=== PATIENT | male | born 1935 | race Caucasian/White ===

== ENCOUNTER 2018-10-01 12:22 | Inpatient (IN) | payer MEDICARE, OTHER ==
--- NOTE | 2018-10-01 12:34 | ED ---
General Adult HPI - General Stated complaint: Fall, hip fracture Time Seen by Provider: 10/01/18 12:22 Source: RN notes reviewed - History of Present Illness Initial comments: This is an 83-year-old male who presents emergency Department from [facility]. Patient states he was walking mouth with somewhat this morning he turned tripped and fell and hurt his right hip. Patient was diagnosed with an intertrochanteric fracture at [place] and transferred our facility. Patient denies any head or having any neck pain. Patient denies any other injury at this time. Patient states he does have diabetes and high blood pressure. Patient denies any knee pain or any other area of injury at this time. - Related Data Home Medications Medication Instructions Recorded Confirmed Canagliflozin [Invokana] 100 mg PO DAILY 10/01/18 10/01/18 Garlic 1 tab PO DAILY 10/01/18 10/01/18 Ketoconazole [Ketoconazole 2%] 1 applic TOPICAL BID 10/01/18 10/01/18 Lisinopril 20 mg PO DAILY 10/01/18 10/01/18 Lovastatin [Mevacor] 40 mg PO HS 10/01/18 10/01/18 Triamterene/Hydrochlorothiazid 1 cap PO DAILY 10/01/18 10/01/18 [Dyazide 37.5-25 Capsule] Ubidecarenone [Co Q-10] 100 mg PO DAILY 10/01/18 10/01/18 glipiZIDE [Glucotrol] 10 mg PO AC-BID 10/01/18 10/01/18 metFORMIN HCL 1,000 mg PO BID 10/01/18 10/01/18 Allergies Allergy/AdvReac Type Severity Reaction Status Date / Time No Known Allergies Allergy Verified 10/01/18 13:58 Review of Systems ROS Statement: Those systems with pertinent positive or pertinent negative responses have been documented in the HPI. ROS Other: All systems not noted in ROS Statement are negative. General Exam - General Exam Comments Initial Comments: GENERAL: Patient is well-developed and well-nourished. Patient is nontoxic and well- hydrated and is in mild distress ENT: Neck is soft and supple. No significant lymphadenopathy is noted. Oropharynx is clear. Moist mucous membranes. Neck has full range of motion without eliciting any pain. EYES: The sclera were anicteric and conjunctiva were pink and moist. Extraocular movements were intact and pupils were equal round and reactive to light. Eyelids were unremarkable. PULMONARY: Unlabored respirations. Good breath sounds bilaterally. No audible rales rhonchi or wheezing was noted. CARDIOVASCULAR: There is a regular rate and rhythm without any murmurs gallops or rubs. ABDOMEN: Soft and nontender with normal bowel sounds. No palpable organomegaly was noted. There is no palpable pulsatile mass. SKIN: Skin is clear with no lesions or rashes and otherwise unremarkable. NEUROLOGIC: Patient is alert and oriented x3. Cranial nerves II through XII are grossly intact. Motor and sensory are also intact. Normal speech, volume and content. Symmetrical smile. MUSCULOSKELETAL: Patient is unable to move the right leg secondary to hip pain. Patient's hip is very tender to palpation and does appear to be somewhat swollen. LYMPHATICS: No significant lymphadenopathy is noted PSYCHIATRIC: Normal psychiatric evaluation. Course Vital Signs 10/01/18 10/01/18 10/01/18 12:32 12:36 12:40 Temperature 98.5 F Pulse Rate 77 81 Respiratory 18 12 Rate Blood Pressure 125/71 125/71 O2 Sat by Pulse 95 95 88 L Oximetry 10/01/18 10/01/18 10/01/18 12:50 13:00 13:50 Temperature Pulse Rate 77 82 75 Respiratory 11 L 15 16 Rate Blood Pressure 125/71 125/71 130/66 O2 Sat by Pulse 85 L 92 L 96 Oximetry 10/01/18 14:30 Temperature 98.4 F Pulse Rate 71 Respiratory 16 Rate Blood Pressure 129/65 O2 Sat by Pulse 97 Oximetry Medical Decision Making - Medical Decision Making EKG shows a normal sinus rhythm at 72 bpm SD interval 176 QRS 78 QT interval 424 QTC is 464. Patient's EKG shows no ST segment elevation or depression or T wave abnormalities are noted. I reviewed the x-ray from the other facility and it did show a proximal femur fracture that was comminuted. I spoke to or the [facility] and she agreed to accept the patient admitted the patient to Dr. Guerra. - Lab Data Result diagrams: 10/01/18 13:45 10/01/18 13:45 Lab Results 10/01/18 10/01/18 10/01/18 Range/Units 13:45 13:45 13:45 WBC 8.2 (3.8-10.6) k/uL RBC 3.74 L (4.30-5.90) m/uL Hgb 11.2 L (13.0-17.5) gm/dL Hct 34.4 L (39.0-53.0) % MCV 92.1 (80.0-100.0) fL MCH 30.0 (25.0-35.0) pg MCHC 32.6 (31.0-37.0) g/dL RDW 13.0 (11.5-15.5) % Plt Count 187 (150-450) k/uL Neutrophils % 83 % Lymphocytes % 10 % Monocytes % 5 % Eosinophils % 0 % Basophils % 1 % Neutrophils # 6.8 (1.3-7.7) k/uL Lymphocytes # 0.8 L (1.0-4.8) k/uL Monocytes # 0.4 (0-1.0) k/uL Eosinophils # 0.0 (0-0.7) k/uL Basophils # 0.0 (0-0.2) k/uL PT 10.5 (9.0-12.0) sec INR 1.0 (<1.2) APTT 22.4 (22.0-30.0) sec Sodium 140 (137-145) mmol/L Potassium 3.9 (3.5-5.1) mmol/L Chloride 113 H (98-107) mmol/L Carbon Dioxide 24 (22-30) mmol/L Anion Gap 3 mmol/L BUN 17 (9-20) mg/dL Creatinine 0.79 (0.66-1.25) mg/dL Est GFR (CKD-EPI)AfAm >90 (>60 ml/min/1.73 sqM) Est GFR (CKD-EPI)NonAf 84 (>60 ml/min/1.73 sqM) Glucose 158 H (74-99) mg/dL Calcium 8.4 (8.4-10.2) mg/dL Total Bilirubin 0.9 (0.2-1.3) mg/dL AST 20 (17-59) U/L ALT 26 (21-72) U/L Alkaline Phosphatase 67 (38-126) U/L Total Protein 5.7 L (6.3-8.2) g/dL Albumin 3.1 L (3.5-5.0) g/dL Disposition Clinical Impression: Femur fracture Disposition: ADMITTED IP TO THIS HOSP Time of Disposition: 13:51
[2018-10-01] MEDS ORDERED: SODIUM CHLORIDE 0.9% 1,000 ML IV ONE (13:55)
[2018-10-01] MEDS ORDERED: MORPHINE SULFATE 2 MG/ML SYRINGE IVP PRN (13:57)
[2018-10-01 14:07] LABS: Basophils % (A) 1 %; Eosinophils % (A) 0 %; HCT 34.4 % (39.0-53.0); HGB 11.2 gm/dL (13.0-17.5); Lymphocytes # (A) 0.8 k/uL (1.0-4.8); Lymphocytes % (A) 10 %; MCHC 32.6 g/dL (31.0-37.0); MCV 92.1 fL (80.0-100.0); Mean Platelet Volume 6.9; Monocytes # (A) 0.4 k/uL (0-1.0); Monocytes % (A) 5 %; Neutrophils # (A) 6.8 k/uL (1.3-7.7); Neutrophils % (A) 83 %; Platelet Count 187 k/uL (150-450); RBC 3.74 m/uL (4.30-5.90); WBC 8.2 k/uL (3.8-10.6)
[2018-10-01 14:21] LABS: ALT 26 U/L (21-72); AST 20 U/L (17-59); Albumin 3.1 g/dL (3.5-5.0); Alkaline Phosphatase 67 U/L (38-126); Anion Gap 3 mmol/L; Blood Urea Nitrogen 17 mg/dL (9-20); Calcium 8.4 mg/dL (8.4-10.2); Carbon Dioxide 24 mmol/L (22-30); Chloride 113 mmol/L (98-107); Glucose 158 mg/dL (74-99); Potassium 3.9 mmol/L (3.5-5.1); Sodium 140 mmol/L (137-145); Total Bilirubin 0.9 mg/dL (0.2-1.3); Total Protein 5.7 g/dL (6.3-8.2)
[2018-10-01 14:26] LABS: Partial Thromboplastin Time 22.4 sec (22.0-30.0); Prothrombin Time 10.5 sec (9.0-12.0)
--- NOTE | 2018-10-01 14:52 | CT ---
EXAMINATION TYPE: CT hip RT wo con DATE OF EXAM: 10/01/2018 COMPARISON: 10/01/2018 plain films HISTORY: right hip fx CT DLP: 563.9 mGycm Automated exposure control for dose reduction was used. FINDINGS: There is a comminuted fracture at the proximal diaphysis right hip. There is avulsion of the lesser t rochanter. There is an oblique fracture of the diaphysis of the femur. The femoral head articulates with the acetabulum. Femoral neck and greater trochanter appear intact. IMPRESSION: COMMINUTED FRACTURE PROXIMAL DIAPHYSIS RIGHT FEMUR.
[2018-10-01] MEDS ORDERED: HYDROmorphone 1 MG/ML 1 ML SYRINGE IVP PRN (15:26)
[2018-10-01] MEDS ORDERED: DIAZEPAM 5 MG TAB PO PRN (15:27)
[2018-10-01] MEDS ORDERED: ACETAMINOPHEN TAB 500 MG TAB PO PRN (15:57)
[2018-10-01] MEDS ORDERED: POLYETHYLENE GLYCOL 3350 17 GM POWD.PACK PO PRN (15:57)
--- NOTE | 2018-10-01 15:58 | P.HPOR ---
History of Present Illness H&P Date: 10/01/18 Chief Complaint: Right hip pain The patient is an 83-year-old male who presented to [facility] as a transfer from [facility]. The patient states that he fell early this morning while getting wood outside. He fell onto his right side and had immediate right hip pain. The patient did go to the emergency department at [facility] where he was found to have a intertrochanteric fracture and was transferred here for further evaluation and care by orthopedic surgery. The patient denies any other injury at this time. The patient does have a history of diabetes, hyperlipidemia, and hypertension. He does live at home with his . The patient denies fever, chills, rigors, shortness breath, chest pain, and abdominal pain today. Review of Systems Constitutional: Denies chills, Denies fatigue, Denies fever Cardiovascular: Denies chest pain, Denies shortness of breath Respiratory: Denies cough Gastrointestinal: Denies diarrhea, Denies nausea, Denies vomiting Musculoskeletal: right: hip pain, hip stiffness, hip swelling Past Medical History Past Medical History: Coronary Artery Disease (CAD), Diabetes Mellitus, Hyperlipidemia, Hypertension, Prostate Disorder Additional Past Medical History / Comment(s): heart murmur History of Any Multi-Drug Resistant Organisms: None Reported Past Surgical History: Joint Replacement, Orthopedic Surgery Additional Past Surgical History / Comment(s): amputated finger,knee repair, cataract Past Psychological History: No Psychological Hx Reported Smoking Status: Never smoker Past Alcohol Use History: None Reported Past Drug Use History: None Reported - Past Family History Mother Family Medical History: Diabetes Mellitus Father Family Medical History: CVA/TIA Medications and Allergies Home Medications Medication Instructions Recorded Confirmed Type Canagliflozin [Invokana] 100 mg PO DAILY 10/01/18 10/01/18 History Garlic 1 tab PO DAILY 10/01/18 10/01/18 History Ketoconazole [Ketoconazole 2%] 1 applic TOPICAL BID 10/01/18 10/01/18 History Lisinopril 20 mg PO DAILY 10/01/18 10/01/18 History Lovastatin [Mevacor] 40 mg PO HS 10/01/18 10/01/18 History Triamterene/Hydrochlorothiazid 1 cap PO DAILY 10/01/18 10/01/18 History [Dyazide 37.5-25 Capsule] Ubidecarenone [Co Q-10] 100 mg PO DAILY 10/01/18 10/01/18 History glipiZIDE [Glucotrol] 10 mg PO AC-BID 10/01/18 10/01/18 History metFORMIN HCL 1,000 mg PO BID 10/01/18 10/01/18 History Allergies Allergy/AdvReac Type Severity Reaction Status Date / Time No Known Allergies Allergy Verified 10/01/18 13:58 Physical Examination The patient is an 83 year old male that is no acute distress. He is alert and oriented x3. The patient's head is normocephalic and atraumatic. Exam of the cervical spine reveals no pain upon palpation or range of motion. Exam of the bilateral upper extremities reveal no obvious deformities or pain upon range of motion. Exam of the left lower extremity reveals no pain upon palpation. Exam of the right lower extremity reveals a externally rotated and shortened leg. No pain upon palpation to the lateral hip. There is pain upon logrolling and any range of motion of the leg. Bilateral calves are soft and nontender. Patient has good foot and ankle motion bilaterally. Neurological and circulatory status is intact. Results - Labs Labs: Abnormal Lab Results - Last 24 Hours (Table) 10/01/18 10/01/18 Range/Units 13:45 13:45 RBC 3.74 L (4.30-5.90) m/uL Hgb 11.2 L (13.0-17.5) gm/dL Hct 34.4 L (39.0-53.0) % Lymphocytes # 0.8 L (1.0-4.8) k/uL Chloride 113 H (98-107) mmol/L Glucose 158 H (74-99) mg/dL Total Protein 5.7 L (6.3-8.2) g/dL Albumin 3.1 L (3.5-5.0) g/dL H & H 10/01/18 Range/Units 13:45 Hgb 11.2 L (13.0-17.5) gm/dL Hct 34.4 L (39.0-53.0) % Coagulation 10/01/18 Range/Units 13:45 INR 1.0 (<1.2) Result Diagrams: 10/01/18 13:45 10/01/18 13:45 - Diagnostic results Hip x-ray: image reviewed (Outside x-rays of the right hip reveal a displaced proximal femur fracture with displacement of the lesser trochanter.) Assessment and Plan (1) Fall Current Visit: Yes Status: Acute Code(s): W19.XXXA - UNSPECIFIED FALL, INITIAL ENCOUNTER SNOMED Code(s): 1890688 (2) Diabetes mellitus Current Visit: Yes Status: Acute Code(s): E11.9 - TYPE 2 DIABETES MELLITUS WITHOUT COMPLICATIONS SNOMED Code(s): 81473175 (3) Hyperlipidemia Current Visit: Yes Status: Acute Code(s): E78.5 - HYPERLIPIDEMIA, UNSPECIFIED SNOMED Code(s): 27721308 (4) Hypertension Current Visit: Yes Status: Acute Code(s): I10 - ESSENTIAL (PRIMARY) HYPERTENSION SNOMED Code(s): 70203068 (5) Coronary artery disease Current Visit: Yes Status: Acute Code(s): I25.10 - ATHSCL HEART DISEASE OF [place] CORONARY ARTERY W/O ANG PCTRS SNOMED Code(s): 46356554 (6) Femur fracture Current Visit: Yes Status: Acute Code(s): S72.90XA - UNSP FRACTURE OF UNSP FEMUR, INIT ENCNTR FOR CLOSED FRACTURE SNOMED Code(s): 17783489 Plan: The clinical and x-ray findings were discussed with the patient and the patient' s family at the bedside. The case was also discussed with Dr. Strickland. A CT of the right hip was ordered to evaluate the fracture further. We are recommending a intertrochanteric nailing of the right hip. Internal medicine has been consulted for medical clearance for surgery. The patient may begin a consistent carb diet tonight. Continue bedrest. Continue pain control per internal medicine. We are planning surgical intervention in the next 1-2 days depending on clearance. We will continue to follow patient closely and make further recommendations as needed.
--- NOTE | 2018-10-01 16:01 | P.CONS ---
History of Present Illness - Reason for Consult Preoperative clearance - History of Present Illness A pleasant 83-year-old gentleman had a mechanical fall found to have comminuted fracture the [place] diaphoresis of the right femur. Patient is complaining of severe pain in that area and spasms in that area. She denied any syncopal episode. Patient denied any chest pain at this time patient is not a smoker oxygen status is very good not dependent in ADLs or IADLs. Patient had an EKG which showed some old septal Q waves. Patient denied any shortness of breath doesn't have any history of congestive heart failure and valvular heart disease. I'll obtain echocardiogram to make sure there are no wall motion abnormalities or significant valvular abnormalities patient risk is low to intermediate operative risk for orthopedic surgery. Thing was discussed with the patient. Patient the is on opiates which will be discontinued will use Toradol for pain along with GI prophylaxis and baclofen for spasms discontinue diazepam to prevent delirium and other side effects associated with these medications and elderly people of his age. Patient does have previous history of smoking he quit in 1967 Review of Systems REVIEW OF SYSTEMS: CONSTITUTIONAL: No fever, no malaise, no fatigue. HEENT: No recent visual problems or hearing problems. Denied any sore throat. CARDIOVASCULAR: No chest pain, orthopnea, PND, no palpitations, no syncope. PULMONARY: No shortness of breath, no cough, no hemoptysis. GASTROINTESTINAL: No diarrhea, no nausea, no vomiting, no abdominal pain. Normoactive bowel sounds. NEUROLOGICAL: No headaches, no weakness, no numbness. HEMATOLOGICAL: Denies any bleeding or petechiae. GENITOURINARY: Denies any burning micturition, frequency, or urgency. MUSCULOSKELETAL/RHEUMATOLOGICAL: Right leg pain ENDOCRINE: Denies any polyuria or polydipsia. The rest of the 14-point review of systems is negative. Past Medical History Past Medical History: Coronary Artery Disease (CAD), Diabetes Mellitus, Hyperlipidemia, Hypertension, Prostate Disorder Additional Past Medical History / Comment(s): heart murmur History of Any Multi-Drug Resistant Organisms: None Reported Past Surgical History: Joint Replacement, Orthopedic Surgery Additional Past Surgical History / Comment(s): amputated finger,knee repair, cataract Past Psychological History: No Psychological Hx Reported Smoking Status: Never smoker Past Alcohol Use History: None Reported Past Drug Use History: None Reported Medications and Allergies Home Medications Medication Instructions Recorded Confirmed Type Canagliflozin [Invokana] 100 mg PO DAILY 10/01/18 10/01/18 History Garlic 1 tab PO DAILY 10/01/18 10/01/18 History Ketoconazole [Ketoconazole 2%] 1 applic TOPICAL BID 10/01/18 10/01/18 History Lisinopril 20 mg PO DAILY 10/01/18 10/01/18 History Lovastatin [Mevacor] 40 mg PO HS 10/01/18 10/01/18 History Triamterene/Hydrochlorothiazid 1 cap PO DAILY 10/01/18 10/01/18 History [Dyazide 37.5-25 Capsule] Ubidecarenone [Co Q-10] 100 mg PO DAILY 10/01/18 10/01/18 History glipiZIDE [Glucotrol] 10 mg PO AC-BID 10/01/18 10/01/18 History metFORMIN HCL 1,000 mg PO BID 10/01/18 10/01/18 History Allergies Allergy/AdvReac Type Severity Reaction Status Date / Time No Known Allergies Allergy Verified 10/01/18 13:58 Physical Exam Vitals: Vital Signs Temp Pulse Pulse Resp BP BP Pulse Ox 10/01/18 15:19 98.1 F 76 15 163/69 99 10/01/18 14:30 98.4 F 71 16 129/65 97 10/01/18 13:50 75 16 130/66 96 10/01/18 13:00 82 15 125/71 92 L 10/01/18 12:50 77 11 L 125/71 85 L 10/01/18 12:40 81 12 125/71 88 L 10/01/18 12:36 98.5 F 77 18 125/71 95 10/01/18 12:32 95 Intake and Output 10/01/18 10/01/18 10/01/18 06:59 14:59 22:59 Other: Weight 92.533 kg PHYSICAL EXAMINATION: GENERAL: The patient is alert and oriented x3, not in any acute distress. Well developed, well nourished. HEENT: Pupils are round and equally reacting to light. EOMI. No scleral icterus. No conjunctival pallor. Normocephalic, atraumatic. No pharyngeal erythema. No thyromegaly. CARDIOVASCULAR: S1 and S2 present. No murmurs, rubs, or gallops. PULMONARY: Chest is clear to auscultation, no wheezing or crackles. ABDOMEN: Soft, nontender, nondistended, normoactive bowel sounds. No palpable organomegaly. MUSCULOSKELETAL: Deferred to orthopedic surgery EXTREMITIES: No cyanosis, clubbing, or pedal edema. NEUROLOGICAL: Gross neurological examination did not reveal any focal deficits. SKIN: No rashes. Results CBC & Chem 7: 10/01/18 13:45 10/01/18 13:45 Labs: Abnormal Lab Results - Last 24 Hours (Table) 10/01/18 10/01/18 Range/Units 13:45 13:45 RBC 3.74 L (4.30-5.90) m/uL Hgb 11.2 L (13.0-17.5) gm/dL Hct 34.4 L (39.0-53.0) % Lymphocytes # 0.8 L (1.0-4.8) k/uL Chloride 113 H (98-107) mmol/L Glucose 158 H (74-99) mg/dL Total Protein 5.7 L (6.3-8.2) g/dL Albumin 3.1 L (3.5-5.0) g/dL Assessment and Plan Plan: -Preoperative clearance: Patient is lower to intermediate risk for surgery will obtain echocardiogram to rule out any valvular abnormalities were moist abnormalities and to assess ejection fraction. -Comminuted fracture of the right femur: Pain management as mentioned above and DVT prophylaxis as per primary service. -Coronary artery disease never had any stents in the past patient will be resumed on beta [place] -type 2 diabetes mellitus: Oral hypoglycemic agents will be discontinued and patient the will be on sliding scale - hyperlipidemia -Hypertension: Neck supple beta [place] rest of the other antidepressive medications will be held monitor blood pressure and these medications will be started back if needed on as-needed basis. This is to prevent perioperative hypotension -Benign prostatic hypertrophy
[2018-10-01] MEDS: BACLOFEN 10 MG TAB PO PRN (16:11)
[2018-10-01] MEDS ORDERED: glipiZIDE 10 MG TAB PO SCH (17:30)
[2018-10-01 17:31] LABS: Glucose,Whole Blood 155 mg/dL (75-99)
[2018-10-01] MEDS: INSULIN ASPART 100 UNIT/ML 1 ML 10 ML VIAL SQ SCH ×2 (17:35→20:14)
[2018-10-01] MEDS: KETOROLAC 30 MG/ML 1 ML VIAL IVP PRN (18:57)
[2018-10-01 20:04] LABS: Glucose,Whole Blood 208 mg/dL (75-99)
[2018-10-01] MEDS: CLOTRIMAZOLE 1% CREAM 15 GM TUBE TOPICAL SCH (20:13)
[2018-10-01] MEDS: ATORVASTATIN 10 MG TAB PO SCH (20:14)
[2018-10-01] MEDS: FAMOTIDINE 20 MG TAB PO SCH (20:14)
[2018-10-01] MEDS ORDERED: metFORMIN 500 MG TAB PO SCH (21:00)
[2018-10-02] MEDS: BACLOFEN 10 MG TAB PO PRN ×3 (02:24→17:12)
[2018-10-02 07:03] LABS: Glucose,Whole Blood 187 mg/dL (75-99)
[2018-10-02] MEDS: INSULIN ASPART 100 UNIT/ML 1 ML 10 ML VIAL SQ SCH ×4 (07:56→21:54)
[2018-10-02] MEDS: Canagliflozin [Invokana] 100 MG PO SCH (07:56)
[2018-10-02] MEDS: FAMOTIDINE 20 MG TAB PO SCH ×2 (07:57→21:54)
[2018-10-02] MEDS: KETOROLAC 30 MG/ML 1 ML VIAL IVP PRN ×3 (08:34→22:06)
[2018-10-02] MEDS: CLOTRIMAZOLE 1% CREAM 15 GM TUBE TOPICAL SCH ×2 (08:37→21:55)
[2018-10-02] MEDS ORDERED: NON-FORMULARY DRUG (Ubidecarenone [Co Q-10] 100 MG) PO SCH (09:00)
[2018-10-02] MEDS ORDERED: TRIAMTERENE-HCTZ 37.5-25MG 1 EACH CAP PO SCH (09:00)
[2018-10-02] MEDS ORDERED: LISINOPRIL 20 MG TAB PO SCH (09:00)
--- NOTE | 2018-10-02 09:34 | P.CNOR ---
History of Present Illness - [facility] Consult date: 10/02/18 Consult reason: fracture History of present illness: Patient is seen and examined at bedside. He is a very pleasant 83-year-old man who is normally a community ambulate or without any assistance. He is doing some work at home and gathering some firewood and had a fall and had sudden acute pain in his right hip area and I discussed case with Taylor Farooq physician hair or beauty salon assistant and reviewed the history and physical. I'm in agreement with that dictation please refer to that for further details. Patient denies any loss consciousness or chest pain. He has history of bilateral total knee replacements. He denies any problems with his right hip and the past. He has neck and pain in his right hip with any sort of motion. He is unable to his leg up off the bed. Review of Systems As stated per HPI. Denies any tension bowel bladder function. Denies at bedtime patient this breath. Denies any loss of conscious. Denies any history of his right hip. Past Medical History Past Medical History: Coronary Artery Disease (CAD), Diabetes Mellitus, Hyperlipidemia, Hypertension, Musculoskeletal Disorder, Prostate Disorder Additional Past Medical History / Comment(s): heart murmur History of Any Multi-Drug Resistant Organisms: None Reported Past Surgical History: Joint Replacement, Orthopedic Surgery Additional Past Surgical History / Comment(s): amputated finger,knee repair, cataract Past Anesthesia/Blood Transfusion Reactions: No Reported Reaction Past Psychological History: No Psychological Hx Reported Smoking Status: Never smoker Past Alcohol Use History: None Reported Past Drug Use History: None Reported - Past Family History Mother Family Medical History: Diabetes Mellitus Father Family Medical History: CVA/TIA Medications and Allergies Home Medications Medication Instructions Recorded Confirmed Type Canagliflozin [Invokana] 100 mg PO DAILY 10/01/18 10/01/18 History Garlic 1 tab PO DAILY 10/01/18 10/01/18 History Ketoconazole [Ketoconazole 2%] 1 applic TOPICAL BID 10/01/18 10/01/18 History Lisinopril 20 mg PO DAILY 10/01/18 10/01/18 History Lovastatin [Mevacor] 40 mg PO HS 10/01/18 10/01/18 History Triamterene/Hydrochlorothiazid 1 cap PO DAILY 10/01/18 10/01/18 History [Dyazide 37.5-25 Capsule] Ubidecarenone [Co Q-10] 100 mg PO DAILY 10/01/18 10/01/18 History glipiZIDE [Glucotrol] 10 mg PO AC-BID 10/01/18 10/01/18 History metFORMIN HCL 1,000 mg PO BID 10/01/18 10/01/18 History Allergies Allergy/AdvReac Type Severity Reaction Status Date / Time No Known Allergies Allergy Verified 10/01/18 13:58 Physical Examination Osteopathic Statement: *. No significant issues noted on an osteopathic structural exam other than those noted in the History and Physical/Consult. - Hip right Gait: other (His right leg is shortened and externally rotated. He has pain with any sort of motion in his right hip. He has sustained dorsal flexion plantar flexion and EHL intact at the right lower extremity. His thigh and calf soft nontender. He has tenderness to palpation over his hip. His well- healed incisions his right knee. Otherwise his upper extremity is have full active and passive range motion neck is nontender. His abdomen soft nontender chest has good excursion deep inspiration and expiration. The left lower extremity has good active passive range of motion.) Results - Labs Labs: Abnormal Lab Results - Last 24 Hours (Table) 10/01/18 10/01/18 10/01/18 Range/Units 13:45 13:45 17:20 RBC 3.74 L (4.30-5.90) m/uL Hgb 11.2 L (13.0-17.5) gm/dL Hct 34.4 L (39.0-53.0) % Lymphocytes # 0.8 L (1.0-4.8) k/uL Chloride 113 H (98-107) mmol/L Glucose 158 H (74-99) mg/dL POC Glucose (mg/dL) 155 H (75-99) mg/dL Total Protein 5.7 L (6.3-8.2) g/dL Albumin 3.1 L (3.5-5.0) g/dL 10/01/18 10/02/18 Range/Units 19:53 06:44 RBC (4.30-5.90) m/uL Hgb (13.0-17.5) gm/dL Hct (39.0-53.0) % Lymphocytes # (1.0-4.8) k/uL Chloride (98-107) mmol/L Glucose (74-99) mg/dL POC Glucose (mg/dL) 208 H 187 H (75-99) mg/dL Total Protein (6.3-8.2) g/dL Albumin (3.5-5.0) g/dL H & H 10/01/18 Range/Units 13:45 Hgb 11.2 L (13.0-17.5) gm/dL Hct 34.4 L (39.0-53.0) % Coagulation 10/01/18 Range/Units 13:45 INR 1.0 (<1.2) Result Diagrams: 10/01/18 13:45 10/01/18 13:45 - Diagnostic results Hip x-ray: report reviewed (X-rays and CT scans right hip are reviewed. He has a comminuted intertrochanteric right femur fracture with shortening and Rotation. There is no obvious bone mass.), image reviewed Assessment and Plan Assessment: Right hip comminuted intertrochanteric fracture due to a fall, acute Inability to ambulate due to right hip fracture history bilateral knee replacements Plan: right hip intertrochanteric comminuted fracture, acute with displacement Status post fall Inability to ambulate The patient has acute new right hip fracture and is unable to mobilize due to this. This happened occur due to his fall yesterday. The patient will require surgical fixation to allow him the best chance of mobilization and ambulation. With the pattern of his fracture is best for surgery would be to perform intramedullary hip screw placement and internal fixation in the operating room. We discussed this at length with him I discussed the risk, patient's alternatives and benefits of various treatment options ranging from conservative surgical with him. We discussed risk of bleeding risk of infection was need for further surgery risk of decreased loss of motion loss of function malunion nonunion hardware failure nerve damage, possible inability and late possible need for assistive device was all explained to him. The patient will likely need to be nonweightbearing for at least 6 weeks postoperatively. He is scheduled to move out of state as he recently sold his home and was planning to move next week. I discussed with him that this will not likely be possible as he needs to recover significant relief from his major injury and surgery. He will to get this out further with his and family to figure out his accommodations postoperatively when he leaves the hospital. He is being seen by medicine we will plan for surgical intervention tomorrow morning. Time with Patient: Greater than 30
[2018-10-02 11:51] LABS: Glucose,Whole Blood 235 mg/dL (75-99)
--- NOTE | 2018-10-02 15:02 | P.PN ---
Subjective 83-year-old gentleman had a mechanical fall found to have comminuted fracture the [place] diaphoresis of the right femur. Patient is complaining of severe pain in that area and spasms in that area. She denied any syncopal episode. Patient denied any chest pain at this time patient is not a smoker oxygen status is very good not dependent in ADLs or IADLs. Patient had an EKG which showed some old septal Q waves. Patient denied any shortness of breath doesn't have any history of congestive heart failure and valvular heart disease. I'll obtain echocardiogram to make sure there are no wall motion abnormalities or significant valvular abnormalities patient risk is low to intermediate operative risk for orthopedic surgery. Thing was discussed with the patient. Patient the is on opiates which will be discontinued will use Toradol for pain along with GI prophylaxis and baclofen for spasms discontinue diazepam to prevent delirium and other side effects associated with these medications and elderly people of his age. Patient does have previous history of smoking he quit in 196710/02/2018 Patient pain is well-controlled with the present pain regimen but the complaining of severe pain whenever he moves. Echocardiac time is still pending Constitutional: Denied any fatigue denied any fever. Cardio vascular: denied any chest pain, palpitations Gastrointestinal denied any nausea vomiting Pulmonary: Denied any shortness of breath cough Neurologic denied any new focal deficits All inpatient medications were reviewed and appropriate changes in these medications as dictated in the interval history and assessment and plan. Objective - Vital Signs Vital signs: Vital Signs Temp 98.1 F 10/02/18 14:12 Pulse 89 10/02/18 14:12 Resp 20 10/02/18 14:12 BP 132/69 10/02/18 14:12 Pulse Ox 96 10/02/18 14:12 Intake & Output 10/01/18 10/02/18 10/02/18 18:59 06:59 18:59 Intake Total 937.5 1220 Balance 937.5 1220 Weight 92.533 kg Intake: Intake, IV Titration 937.5 1000 Amount Sodium Chloride 0.9% 1, 937.5 1000 000 ml @ 75 mls/hr IV . [id number] ONE Rx#:[id number] Oral 220 Other: Voiding Method Urinal # Voids 3 3 - Exam PHYSICAL EXAMINATION: GENERAL: The patient is alert and oriented x3, not in any acute distress. Well developed, well nourished. HEENT: Pupils are round and equally reacting to light. EOMI. No scleral icterus. No conjunctival pallor. Normocephalic, atraumatic. No pharyngeal erythema. No thyromegaly. CARDIOVASCULAR: S1 and S2 present. No murmurs, rubs, or gallops. PULMONARY: Chest is clear to auscultation, no wheezing or crackles. ABDOMEN: Soft, nontender, nondistended, normoactive bowel sounds. No palpable organomegaly. MUSCULOSKELETAL: Deferred to orthopedic surgery EXTREMITIES: No cyanosis, clubbing, or pedal edema. NEUROLOGICAL: Gross neurological examination did not reveal any focal deficits. SKIN: No rashes. - Labs CBC & Chem 7: 10/01/18 13:45 10/01/18 13:45 Labs: Abnormal Lab Results - Last 24 Hours (Table) 10/01/18 10/01/18 10/02/18 Range/Units 17:20 19:53 06:44 POC Glucose (mg/dL) 155 H 208 H 187 H (75-99) mg/dL 10/02/18 Range/Units 11:40 POC Glucose (mg/dL) 235 H (75-99) mg/dL Assessment and Plan Plan: -Preoperative clearance: Patient is lower to intermediate risk for surgery echocardiogram to rule out any valvular abnormalities were moist abnormalities and to assess ejection fraction. Echo is pending -Comminuted fracture of the right femur: Pain management as mentioned above and DVT prophylaxis as per primary service. -Coronary artery disease never had any stents in the past patient will be resumed on beta [place] -type 2 diabetes mellitus: Oral hypoglycemic agents will be discontinued and patient the will be on sliding scale - hyperlipidemia -Hypertension: Neck supple beta [place] rest of the other antidepressive medications will be held monitor blood pressure and these medications will be started back if needed on as-needed basis. This is to prevent perioperative hypotension -Benign prostatic hypertrophy
[2018-10-02 17:10] LABS: Glucose,Whole Blood 350 mg/dL (75-99)
[2018-10-02 20:04] LABS: Glucose,Whole Blood 238 mg/dL (75-99)
[2018-10-02] MEDS: ATORVASTATIN 10 MG TAB PO SCH (21:54)
[2018-10-03] MEDS: KETOROLAC 30 MG/ML 1 ML VIAL IVP PRN (06:05)
[2018-10-03 06:55] LABS: Glucose,Whole Blood 178 mg/dL (75-99)
--- NOTE | 2018-10-03 07:08 | ECHOF ---
Referral Reason:pre-Op clerance MEASUREMENTS -------- HEIGHT: 180.3 cm WEIGHT: 92.5 kg BP: 135/55 RVIDd: 4.0 cm (< 3.3) IVSd: 1.3 cm (0.6 - 1.1) LVIDd: 3.7 cm (3.9 - 5.3) LVPWd: 1.2 cm (0.6 - 1.1) IVSs: 1.4 cm LVIDs: 2.1 cm LVPWs: 1.3 cm LAESV Index (A-L): 36.07 ml/m Ao Diam: 2.8 cm (2.0 - 3.7) AV Cusp: 1.0 cm (1.5 - 2.6) MV E Taj: 1.35 m/s MV DecT: 263 ms MV A Taj: 1.20 m/s MV E/A Ratio: 1.12 AV maxP.26 mmHg AV meanP.41 mmHg RAP: 15.00 mmHg RVSP: 37.51 mmHg FINDINGS -------- Sinus rhythm. This was a technically difficult study with suboptimal views. The left ventricular size is normal. There is mild concentric left ventricular hypertrophy. Overa ll left ventricular systolic function is normal with, an EF between 55 - 60 %. The right ventricle is severely enlarged. LA is moderately dilated 34-39 ml/m2 RA appears enlarged. 3 ml of Lumason was utilized for enhancement of images. There is moderate aortic valve sclerosis. There is no evidence of aortic regurgitation. There is mild to moderate aortic stenosis present. Peak/mean gradient across the Aortic Valve is 34.26mmHg / 21.41mmHg. The mitral valve leaflets are mildly thickened. Mild mitral annular calcification present. Mild m itral regurgitation is present. Mild tricuspid regurgitation present. Right ventricular systolic pressure is normal at < 35 mmHg. There is no evidence of pulmonary hypertension. The pulmonic valve was not well visualized. The aortic root size is normal. The inferior vena cava is dilated with poor inspiratory collapse which is consistent with estimated r ight atrial pressure of 20 mmHg. There is no pericardial effusion. CONCLUSIONS -------- 1. Sinus rhythm. 2. This was a technically difficult study with suboptimal views. 3. The left ventricular size is normal. 4. There is mild concentric left ventricular hypertrophy. 5. Overall left ventricular systolic function is normal with, an EF between 55 - 60 %. 6. The right ventricle is severely enlarged. 7. LA is moderately dilated 34-39 ml/m2 8. RA appears enlarged. 9. 3 ml of Lumason was utilized for enhancement of images. 10. There is moderate aortic valve sclerosis. 11. There is mild to moderate aortic stenosis present. 12. Peak/mean gradient across the Aortic Valve is 34.26mmHg / 21.41mmHg. 13. The mitral valve leaflets are mildly thickened. 14. Mild mitral annular calcification present. 15. Mild mitral regurgitation is present. 16. Mild tricuspid regurgitation present. 17. Right ventricular systolic pressure is normal at < 35 mmHg. 18. There is no evidence of pulmonary hypertension. 19. The pulmonic valve was not well visualized. 20. The aortic root size is normal. 21. The inferior vena cava is dilated with poor inspiratory collapse which is consistent with estimat ed right atrial pressure of 20 mmHg. 22. There is no pericardial effusion. HIDE BUFFER: Sarwat Huitron RDCS
[2018-10-03] MEDS: INSULIN ASPART 100 UNIT/ML 1 ML 10 ML VIAL SQ SCH ×4 (07:55→22:13)
[2018-10-03] MEDS: Canagliflozin [Invokana] 100 MG PO SCH (07:56)
[2018-10-03] MEDS: FAMOTIDINE 20 MG TAB PO SCH ×2 (07:56→22:12)
[2018-10-03] MEDS: CLOTRIMAZOLE 1% CREAM 15 GM TUBE TOPICAL SCH ×2 (07:56→22:13)
[2018-10-03] MEDS ORDERED: ceFAZolin IN SWFI 2 GM/20 ML SYRINGE IVP ONE (08:15)
[2018-10-03] MEDS ORDERED: MORPHINE SULFATE 2 MG/ML SYRINGE IV PRN (09:29)
[2018-10-03] MEDS ORDERED: HYDROmorphone 0.5 MG/0.5 ML SYRINGE IVP PRN (09:29)
[2018-10-03] MEDS ORDERED: SODIUM CHLORIDE 0.9% 1,000 ML IV ONE (10:36)
[2018-10-03] MEDS ORDERED: KETAMINE 10 MG/ML 20 ML VIAL ONE (10:36)
[2018-10-03] MEDS ORDERED: MIDAZOLAM 2 MG/2 ML VIAL ONE (10:36)
[2018-10-03] MEDS ORDERED: LACTATED RINGERS 1,000 ML IV ONE (11:48)
--- NOTE | 2018-10-03 12:16 | FL ---
FLUOROSCOPY 1 minute and 52 seconds of fluoroscopy time were utilized during internal fixation of the right hip. 3 images document the procedure.
[2018-10-03] MEDS ORDERED: MAGNESIUM HYDROXIDE 2,400 MG/10 ML CUP PO PRN (12:21)
[2018-10-03] MEDS ORDERED: NALOXONE 0.4 MG/ML 1 ML VIAL IV PRN (12:21)
[2018-10-03] MEDS ORDERED: HYDROcodone/APAP 5-325MG 1 EACH TAB PO PRN (12:21)
[2018-10-03 12:28] LABS: Glucose,Whole Blood 187 mg/dL (75-99)
--- NOTE | 2018-10-03 12:31 | P.OP ---
Date of Procedure: 10/03/18 Preoperative Diagnosis: Right hip comminuted intertrochanteric femur fracture with subtrochanteric extension, acute traumatic due to fall Postoperative Diagnosis: Same Procedure(s) Performed: Open reduction internal fixation with intramedullary hip screw Use of fluoroscopic guidance Placement of intramedullary hip screw and lag screw with distal locking screws Anesthesia: GETA Pathology: other (Proximal femur reaming sent to pathology) Condition: stable Disposition: PACU Description of Procedure: Preoperative diagnosis: Intertrochanteric femoral hip fracture, with subtrochanteric extension, acute traumatic due to a fall Postoperative diagnosis: Same Procedure: intertrochanteric hip screw placement Use of fluoroscopic guidance Closed reduction, with open reduction of intertrochanteric fracture Surgeon: Dr. Marco A Moreno.: None Anesthesia: Spinal anesthesia per anesthesia department Estimated blood loss: Approximately 150 mL Components implanted: [employer]AN intramedullary hip screw 130 11 mm with a 105 mm lag screw, a compression screw and a distal locking screw which measured 35 mm Disposition: To recovery room in good stable condition Operative indications The patient sustained a injury and suffered a hip fracture at the inter- trochanteric area of her femur which was displaced and angulated. He is normally a community ambulator and was doing some work carrying some wood to burn inside when he fell and had subacute fracture at his right hip with acute pain. He was brought into the emergency room and found to have an intertrochanteric femur fracture subtrochanteric extension and was transferred to the [facility] for definitive treatment. We were involved in the case in regard to his hip fracture. After evaluation it was determined that they would be a candidate for hip internal fixation and stabilization via surgical intervention. This would give them the best chance of mobilization and ambulation. We discussed the range of treatment options from conservative to surgical. We discussed the risks, patient alternatives and benefits of his injury and various treatment options. The risks of surgery including but not limited to the risk of bleeding risk infection was need for further surgery risk of decreased loss of motion loss function malunion nonunion hardware failure nerve damage and particularly loss of his independence with decreased function given his significant injury was explained to him. They elected proceed with surgical intervention. We answered their questions to the best of our ability healing which they can understand. They signed an informed consent. Operative summary After obtaining informed consent evaluation by anesthesia, preoperative evaluation and clearance for medical service, the patient was identified and prepped [place] area and the surgical site was marked. There brought to the operating room where the given appropriate anesthesia by the anesthesia department in standard fashion without any complications. Once the anesthesia was established we were able to position the patient. The patient was placed on a fracture table with a well-padded perineal post. The operative side was placed in a foot rudolph stirrup which was well-padded well molded and placed in gentle in-line traction. The left nonoperative leg was placed in a padded stirrup. C-arm was brought in and we performed a closed reduction technique at the hip. We are able to get good alignment good position of the intertrochanteric fracture with gentle reduction techniques and traction utilizing the fracture table. Once patient was well positioned lower extremity was prepped and draped in normal standard sterile fashion. An appropriate keystone protocol and timeout was completed and were able to proceed with surgery. At the right lateral hip, He started point just proximal to the greater trochanter was established and a median incision approximately 2 inches in length approximately to the greater trochanter. I dissected down through the fascia and I was able to expose the tip of the greater trochanter. A sharp starting hole was established at the tip of the greater trochanter near the junction of the anterior and middle third. Positioning was confirmed with C-arm guidance. I was able to start the awl into the bone and then use a guidepin at the starting point establish down to the level of the lesser trochanter at the intramedullary space. I then used a starting reamer for the greater trochanter placed over the guidepin and reamed down appropriately under C-arm guidance. I was unable to place a guidepin into the intramedullary aspect of the femur and then reamed appropriately to the appropriate length. The positioning was confirmed on C- arm guidance. Note was made of significant comminution with a subtrochanteric extension which was well realigned and reduced. With the femur appropriately reamed I then chose the appropriate size intramedullary caleb which was connected to the appropriate jig. The jig was checked for alignment. The area was copiously irrigated and suctioned dry and we're able place the caleb at intramedullary space through the starting hole appropriately. It was seated down for appropriate position to align the leg pain into the femoral neck and head. A second incision was established at the site for the placement of the lag screw area and the guide was established at the lateral aspect of the femur and a guidepin was drilled into the femoral neck and head and near center center position. With this appropriate alignment and position where a reamer over the guidepin making sure not to penetrate the articular surface. The position was confirmed on C-arm guidance in AP and lateral positions. With this established we were able to place the appropriate size lag screw after measuring approximately 105 mm. Lag screw was placed into the femoral neck and head good alignment good position with excellent bony purchase. It was appropriately aligned and we placed a locking screw through the caleb appropriately and checked that the position was established. I was able to drill and place the compression screw immediately adjacent and inferior to the lag screw which gave good compression across the fracture site in good alignment and position. With the area in good position able place a distal locking screw. We utilized the guide sleeve a separate incision was made at the skin. The guide sleeve was placed in the lateral aspect of the femur and the distal locking screw hole was established through the femur and distal locking hole of the intramedullary caleb. It was measured appropriately and a distal locking screw was placed in good alignment and good position with excellent bony purchase. The position was checked to make sure it was through the appropriate hole in the intramedullary caleb. With this established we're able to remove the jig completely from the caleb and final images were taken which showed excellent alignment and position of the hardware and the fracture. With the caleb in place and the fracture stable, although the incision sites were copiously irrigated and suctioned dry. Good hemostasis was maintained. Deep fascial layers were closed with #1 Vicryl. Subcu tissue was closed with 2-0 Vicryl. Subcuticular tissues closed with 3-0 Vicryl. Was are cleaned and dried with dressed with Mastisol and Steri-Strips Telfa for a force and tape. Drapes were broken down, the hip was held in stable position with the post being removed safely once the positioning was stabilized. The patient was then transferred back to their hospital bed being careful to maintain the hip and C- spine alignment and airway. Once stable to patient was transferred back to the postanesthesia care unit to be readmitted for pain control and DVT prophylaxis medical management and monitoring and mobilization we will continue follow patient closely throughout their postoperative course.
[2018-10-03] MEDS: LACTATED RINGERS 1,000 ML IV SCH (12:44)
--- NOTE | 2018-10-03 14:48 | P.PN ---
Subjective 83-year-old gentleman had a mechanical fall found to have comminuted fracture the [place] diaphoresis of the right femur. Patient is complaining of severe pain in that area and spasms in that area. She denied any syncopal episode. Patient denied any chest pain at this time patient is not a smoker oxygen status is very good not dependent in ADLs or IADLs. Patient had an EKG which showed some old septal Q waves. Patient denied any shortness of breath doesn't have any history of congestive heart failure and valvular heart disease. I'll obtain echocardiogram to make sure there are no wall motion abnormalities or significant valvular abnormalities patient risk is low to intermediate operative risk for orthopedic surgery. Thing was discussed with the patient. Patient the is on opiates which will be discontinued will use Toradol for pain along with GI prophylaxis and baclofen for spasms discontinue diazepam to prevent delirium and other side effects associated with these medications and elderly people of his age. Patient does have previous history of smoking he quit in 196710/02/2018 Patient pain is well-controlled with the present pain regimen but the complaining of severe pain whenever he moves. Echocardiac time is still pending 10/03/2018 Patient had intramedullary hip screw for his intertrochanteric femoral fracture which was comminuted fracture patient is still coming out of anesthesia Constitutional: Denied any fatigue denied any fever. Cardio vascular: denied any chest pain, palpitations Gastrointestinal denied any nausea vomiting Pulmonary: Denied any shortness of breath cough Neurologic denied any new focal deficits All inpatient medications were reviewed and appropriate changes in these medications as dictated in the interval history and assessment and plan. Objective - Vital Signs Vital signs: Vital Signs Temp 97.4 F L 10/03/18 13:07 Pulse 76 10/03/18 13:07 Resp 18 10/03/18 13:07 BP 174/89 10/03/18 13:07 Pulse Ox 98 10/03/18 13:07 Intake & Output 10/02/18 10/03/18 10/03/18 18:59 06:59 18:59 Intake Total 1440 600 675 Output Total 500 150 Balance 1440 100 525 Intake: IV 600 Intake, IV Titration 1000 75 Amount Lactated Ringers 1,000 ml 75 @ 20 mls/hr IV .Q24H [facility] Rx#:[id number] Sodium Chloride 0.9% 1, 1000 000 ml @ 75 mls/hr IV . [id number] Rx#:[id number] Oral 440 600 Output: Urine 500 Estimated Blood Loss 150 Other: # Voids 3 - Exam PHYSICAL EXAMINATION: GENERAL: The patient is alert and oriented x3, not in any acute distress. Well developed, well nourished. HEENT: Pupils are round and equally reacting to light. EOMI. No scleral icterus. No conjunctival pallor. Normocephalic, atraumatic. No pharyngeal erythema. No thyromegaly. CARDIOVASCULAR: S1 and S2 present. No murmurs, rubs, or gallops. PULMONARY: Chest is clear to auscultation, no wheezing or crackles. ABDOMEN: Soft, nontender, nondistended, normoactive bowel sounds. No palpable organomegaly. MUSCULOSKELETAL: Deferred to orthopedic surgery EXTREMITIES: No cyanosis, clubbing, or pedal edema. NEUROLOGICAL: Gross neurological examination did not reveal any focal deficits. SKIN: No rashes. - Labs CBC & Chem 7: 10/01/18 13:45 10/01/18 13:45 Labs: Abnormal Lab Results - Last 24 Hours (Table) 10/02/18 10/02/18 10/03/18 Range/Units 16:57 19:53 06:37 POC Glucose (mg/dL) 350 H 238 H 178 H (75-99) mg/dL 10/03/18 Range/Units 12:25 POC Glucose (mg/dL) 187 H (75-99) mg/dL Assessment and Plan Plan: -Intertrochanteric fracture of the right hip postoperative day 0 and intramedullary nailing nailing Echo did not show any wall motion abnormalities patient already underwent surgery normal ejection fraction has mild to moderate attic valve sclerosis and stenosis -Comminuted fracture of the right femur: Pain management as mentioned above and DVT prophylaxis as per primary service. -Coronary artery disease never had any stents in the past patient on resumed on beta [place] -type 2 diabetes mellitus: Oral hypoglycemic agents will be discontinued and patient the will be on sliding scale - hyperlipidemia -Hypertension: Neck supple beta [place] rest of the other antihypertensive medications will be held monitor blood pressure and these medications will be started back if needed on as-needed basis. This is to prevent perioperative hypotension -Benign prostatic hypertrophy
[2018-10-03 14:55] LABS: Basophils % (A) 0 %; Eosinophils # (A) 0.1 k/uL (0-0.7); Eosinophils % (A) 1 %; HCT 31.5 % (39.0-53.0); HGB 10.4 gm/dL (13.0-17.5); Hypochromasia Slight; Lymphocytes # (A) 0.6 k/uL (1.0-4.8); Lymphocytes % (A) 7 %; MCH 30.8 pg (25.0-35.0); MCV 93.3 fL (80.0-100.0); Mean Platelet Volume 7.6; Monocytes # (A) 0.4 k/uL (0-1.0); Monocytes % (A) 4 %; Neutrophils # (A) 7.6 k/uL (1.3-7.7); Neutrophils % (A) 87 %; Platelet Count 143 k/uL (150-450); RBC 3.38 m/uL (4.30-5.90); RDW 13.1 % (11.5-15.5); WBC 8.8 k/uL (3.8-10.6)
[2018-10-03] MEDS: HYDROcodone/APAP 5-325MG 1 EACH TAB PO PRN (17:05)
[2018-10-03 17:11] LABS: Glucose,Whole Blood 204 mg/dL (75-99)
[2018-10-03 20:35] LABS: Glucose,Whole Blood 292 mg/dL (75-99)
[2018-10-03] MEDS: ceFAZolin IN SWFI 2 GM/20 ML SYRINGE IVP SCH (22:12)
[2018-10-03] MEDS: ASPIRIN 325 MG TAB PO SCH (22:12)
[2018-10-03] MEDS: ATORVASTATIN 10 MG TAB PO SCH (22:12)
[2018-10-03] MEDS: SENNOSIDES-DOCUSATE SODIUM 1 EACH TAB PO SCH (22:12)
[2018-10-04] MEDS: BACLOFEN 10 MG TAB PO PRN (02:03)
[2018-10-04] MEDS: ceFAZolin IN SWFI 2 GM/20 ML SYRINGE IVP SCH (04:48)
[2018-10-04 07:12] LABS: Glucose,Whole Blood 219 mg/dL (75-99)
[2018-10-04] MEDS: CLOTRIMAZOLE 1% CREAM 15 GM TUBE TOPICAL SCH ×2 (07:46→22:45)
[2018-10-04] MEDS: HYDROcodone/APAP 5-325MG 1 EACH TAB PO PRN ×3 (07:46→23:35)
[2018-10-04] MEDS: FAMOTIDINE 20 MG TAB PO SCH ×2 (07:46→21:24)
[2018-10-04] MEDS: ASPIRIN 325 MG TAB PO SCH ×2 (07:46→21:23)
[2018-10-04] MEDS: INSULIN ASPART 100 UNIT/ML 1 ML 10 ML VIAL SQ SCH ×4 (07:47→21:24)
[2018-10-04] MEDS: Canagliflozin [Invokana] 100 MG PO SCH (07:47)
[2018-10-04 09:50] LABS: HCT 28.4 % (39.0-53.0); HGB 9.5 gm/dL (13.0-17.5); MCH 30.6 pg (25.0-35.0); MCHC 33.3 g/dL (31.0-37.0); MCV 91.8 fL (80.0-100.0); Mean Platelet Volume 7.5; Platelet Count 139 k/uL (150-450); RDW 13.2 % (11.5-15.5); WBC 7.4 k/uL (3.8-10.6)
--- NOTE | 2018-10-04 09:56 | XR ---
EXAMINATION TYPE: XR Hip Complete RT DATE OF EXAM: 10/04/2018 COMPARISON: 10/03/2018 HISTORY: Right hip fracture TECHNIQUE: 2 views right hip FINDINGS: There is placement of screws and medullary pin within the right hip. The avulsion of the le sser trochanter is again evident. Fracture along the lateral right proximal femoral diaphysis is agai n evident. Hip pin is evident. IMPRESSION: 1. No new fractures post hip pin placement.
[2018-10-04 10:03] LABS: Anion Gap 6 mmol/L; Blood Urea Nitrogen 20 mg/dL (9-20); Calcium 8.4 mg/dL (8.4-10.2); Carbon Dioxide 24 mmol/L (22-30); Chloride 109 mmol/L (98-107); Glucose 236 mg/dL (74-99); Potassium 4.2 mmol/L (3.5-5.1); Sodium 139 mmol/L (137-145)
[2018-10-04 11:48] LABS: Glucose,Whole Blood 293 mg/dL (75-99)
[2018-10-04] MEDS ORDERED: HYDROcodone/APAP 5-325MG 1 EACH TAB PO PRN (12:31)
[2018-10-04] MEDS: MULTIVITAMINS, THERA 1 EACH TAB PO SCH (12:38)
--- NOTE | 2018-10-04 16:42 | P.PN ---
Progress Note - Text Progress Note Date: 10/04/18 Patient is a very pleasant 83-year-old male who is seen and examined at bedside for further evaluation in regards to his right hip. He is status post right hip open reduction internal fixation with intramedullary hip screw for right hip comminuted intertrochanteric femur fracture with subtrochanteric extension. Postoperatively he continues to have significant pain in his right hip. He does not want anyone moving his right hip or right lower extremity. His pain is better controlled at rest. He states he did have significant difficulty last night with trying to get the assistance of a nurse. He dropped his phone and call button onto the floor and was unable to get a hold of his nurse. He was able to call 911 from the hospital phone in order to get some help. Nursing states he was somewhat confused after receiving 2 tablets of [place]. Patient did remove his IV last night as well. Patient states he does not feel he can work with physical therapy to increase mobility due to his significant pain at his right hip. He denies any left lower extremity pain. Physical Exam Intramedullary [place] for Intertrochanteric Fracture: Status post surgical day number 1 Patient is examined lying in bed Patient is awake and alert, and oriented 3 Vital signs stable Good chest excursion with deep inspiration and expiration Abdomen soft nontender No signs or symptoms of DVT; no calf pain Lower extremity cuffs in place bilaterally Dressing of the right hip is clean, dry, and intact; no erythema, purulence, or signs of infection Significant pain with palpation over the right hip Significant pain with any movement of the right hip Evidence of a well-healed incision over the right knee along the midline Evidence of a well-healed wound at the distal medial thigh Full range of motion of ankles bilaterally Dorsiflexion, plantarflexion, and extensor hallucis longus positive sustained bilaterally Neurovascularly intact bilateral lower extremities Capillary refill less than 2 seconds bilateral lower extremities Assessment: Status post right hip open reduction internal fixation with intramedullary hip screw for right hip comminuted intertrochanteric femur fracture with subtrochanteric extension Status post fall History of coronary artery disease, diabetes mellitus, hyperlipidemia, hypertension, and prostate disorder Plan: 1. Patient to remain nonweightbearing on the right lower extremity; patient may work with physical therapy to increase mobility and ambulation 2. Keep dressing over the right hip clean, dry, and intact 3. Continue pain control [place] or acetaminophen as prescribed as needed for the for the symptoms 5. Continue with anticoagulation therapy with aspirin 325 mg twice per day 6. Medicine to continue following the patient for their other medical diagnosis 7. We'll continue to follow the patient closely; depending on the patient's progress, he may be able to be discharged home or may need to be discharged to a rehabilitation facility prior to returning home following discharge from the hospital 8. Patient can follow-up with Roverto Pascual PA-C or Dr. Elver Strickland at [facility] in 2-3 weeks following discharge
[2018-10-04 17:13] LABS: Glucose,Whole Blood 350 mg/dL (75-99)
--- NOTE | 2018-10-04 18:57 | P.PN ---
Subjective Progress Note Date: 10/04/18 Progress note being dictated for Dr. Chambers. Interval history:83-year-old gentleman had a mechanical fall found to have comminuted fracture the [place] diaphoresis of the right femur. Patient is complaining of severe pain in that area and spasms in that area. She denied any syncopal episode. Patient denied any chest pain at this time patient is not a smoker oxygen status is very good not dependent in ADLs or IADLs. Patient had an EKG which showed some old septal Q waves. Patient denied any shortness of breath doesn't have any history of congestive heart failure and valvular heart disease. I'll obtain echocardiogram to make sure there are no wall motion abnormalities or significant valvular abnormalities patient risk is low to intermediate operative risk for orthopedic surgery. Thing was discussed with the patient. Patient the is on opiates which will be discontinued will use Toradol for pain along with GI prophylaxis and baclofen for spasms discontinue diazepam to prevent delirium and other side effects associated with these medications and elderly people of his age. Patient does have previous history of smoking he quit in 196710/02/2018 Patient pain is well-controlled with the present pain regimen but the complaining of severe pain whenever he moves. Echocardiac time is still pending 10/03/2018 Patient had intramedullary hip screw for his intertrochanteric femoral fracture which was comminuted fracture patient is still coming out of anesthesia 10/04/2018 continues to have significant amount of pain. Rough night, unable to rest. Became confused with 2 [place] tablets-improved now. Blood sugars uncontrolled, family bringing in shakes, cookies, sweets. Denies chest pain, palpitations or shortness of breath. Constitutional: Denied any fatigue denied any fever. Cardio vascular: denied any chest pain, palpitations Gastrointestinal denied any nausea vomiting Pulmonary: Denied any shortness of breath cough Neurologic denied any new focal deficits Active Medications Acetaminophen (Tylenol Tab) 1,000 mg PO Q6HR PRN PRN Reason: Fever and/ or Mild Pain Hydrocodone Bitart/Acetaminophen ([place] 5-325) 1 each PO Q4HR PRN PRN Reason: Pain Scale 1 to 5 Last Admin: 10/04/18 14:02 Dose: 1 each Hydrocodone Bitart/Acetaminophen ([place] 5-325) 2 each PO Q4HR PRN PRN Reason: PAIN SCALE 6-10 Aspirin (Aspirin) 325 mg PO BID [facility] Last Admin: 10/04/18 07:46 Dose: 325 mg Atorvastatin Calcium (Lipitor) 10 mg PO HS [facility] Last Admin: 10/03/18 22:12 Dose: 10 mg Baclofen (Lioresal) 5 mg PO TID PRN PRN Reason: Muscle Spasm Last Admin: 10/04/18 02:03 Dose: 5 mg Clotrimazole (Lotrimin Cream) 1 applic TOPICAL BID [facility] Last Admin: 10/04/18 07:46 Dose: 1 applic Famotidine (Pepcid) 20 mg PO BID [facility] Last Admin: 10/04/18 07:46 Dose: 20 mg Lactated Ringer's (Lactated Ringers) 1,000 mls @ 20 mls/hr IV .Q24H [facility] Last Admin: 10/03/18 12:44 Dose: Not Given Insulin Aspart (Novolog) 0 unit SQ [facility]; Protocol Last Admin: 10/04/18 17:43 Dose: 6 unit Ketorolac Tromethamine (Toradol) 15 mg IVP Q6HR PRN PRN Reason: Pain Stop: 10/06/18 15:31 Last Admin: 10/03/18 06:05 Dose: 15 mg Magnesium Hydroxide (Milk Of Magnesia) 2,400 mg PO DAILY PRN PRN Reason: Constipation Multivitamins (Theragran) 1 each PO DAILY@1200 [facility] Last Admin: 10/04/18 12:38 Dose: 1 each Naloxone HCl (Narcan) 0.2 mg IV Q2M PRN PRN Reason: Opioid Reversal Canagliflozin [ (Invokana] 100 Mg) 100 mg PO DAILY [facility] Last Admin: 10/04/18 07:47 Dose: Not Given Polyethylene Glycol (Miralax) 17 gm PO DAILY PRN PRN Reason: Constipation Senna/Docusate Sodium (Senokot-S) 2 each PO HS [facility] Last Admin: 10/03/18 22:12 Dose: 2 each Objective - Vital Signs Vital signs: Vital Signs Temp 98.8 F 10/04/18 15:09 Pulse 90 10/04/18 16:00 Resp 16 10/04/18 16:00 BP 117/52 10/04/18 15:09 Pulse Ox 96 10/04/18 15:09 Intake & Output 10/03/18 10/04/18 10/04/18 18:59 06:59 18:59 Intake Total 915 300 350 Output Total 150 150 150 Balance 765 150 200 Intake: IV 600 Intake, IV Titration 75 300 350 Amount Lactated Ringers 1,000 ml 75 @ 20 mls/hr IV .Q24H [facility] Rx#:[id number] Sodium Chloride 0.9% 1, 300 350 000 ml @ 0 mls/hr IV .[facility] Rx#:[id number] Oral 240 Output: Urine 150 150 Estimated Blood Loss 150 Other: Voiding Method Urinal - Exam GENERAL: The patient is alert and oriented x3, not in any acute distress. HEENT: Pupils are round and equally reacting to light. EOMI. No scleral icterus. No conjunctival pallor. Normocephalic, atraumatic. CARDIOVASCULAR: S1 and S2 present. No murmurs, rubs, or gallops. PULMONARY: Chest is clear to auscultation, no wheezing or crackles. ABDOMEN: Soft, nontender, nondistended, normoactive bowel sounds. No palpable organomegaly. MUSCULOSKELETAL: Deferred to orthopedic surgery EXTREMITIES: No cyanosis, clubbing, or pedal edema. NEUROLOGICAL: Gross neurological examination did not reveal any focal deficits. SKIN: No rashes. - Labs CBC & Chem 7: 10/04/18 08:52 10/04/18 08:52 Labs: Abnormal Lab Results - Last 24 Hours (Table) 10/03/18 10/04/18 10/04/18 Range/Units 20:24 07:00 08:52 RBC 3.10 L (4.30-5.90) m/uL Hgb 9.5 L (13.0-17.5) gm/dL Hct 28.4 L (39.0-53.0) % Plt Count 139 L (150-450) k/uL Chloride (98-107) mmol/L Glucose (74-99) mg/dL POC Glucose (mg/dL) 292 H 219 H (75-99) mg/dL 10/04/18 10/04/18 10/04/18 Range/Units 08:52 11:34 16:49 RBC (4.30-5.90) m/uL Hgb (13.0-17.5) gm/dL Hct (39.0-53.0) % Plt Count (150-450) k/uL Chloride 109 H (98-107) mmol/L Glucose 236 H (74-99) mg/dL POC Glucose (mg/dL) 293 H 350 H (75-99) mg/dL Assessment and Plan Assessment: -Comminuted,Intertrochanteric femur fracture of the right hip,S/P intramedullary nailing - normal ejection fraction with mild to moderate aortic valve sclerosis and stenosis -Coronary artery disease never had any stents in the past -type 2 diabetes mellitus - hyperlipidemia -Hypertension: -Benign prostatic hypertrophy Plan: Continue on current medication regime ,monitoring and symptomatic treatment. Pain management adjusted. DVT prophylaxis as per primary service. Aggressive pulmonary toileting. Family has been advised to comply with consistent carb diet. Increase ambulation as advised per orthopedics surgery. PT/OT, possible subacute rehab at discharge. The impression and plan of care has been dictated as directed. : I performed a history and examination of this patient, discussed the same with the dictator. I agree with the dictator's note ,documented as a scribe. Any additional findings or plans will be noted.
[2018-10-04 20:29] LABS: Glucose,Whole Blood 227 mg/dL (75-99)
[2018-10-04] MEDS: SENNOSIDES-DOCUSATE SODIUM 1 EACH TAB PO SCH (21:24)
[2018-10-04] MEDS: ATORVASTATIN 10 MG TAB PO SCH (21:24)
[2018-10-04] MEDS: LACTATED RINGERS 1,000 ML IV SCH (22:45)
[2018-10-05] MEDS: HYDROcodone/APAP 5-325MG 1 EACH TAB PO PRN ×3 (06:13→16:27)
[2018-10-05 07:18] LABS: Glucose,Whole Blood 203 mg/dL (75-99)
[2018-10-05] MEDS: MULTIVITAMINS, THERA 1 EACH TAB PO SCH (07:56)
[2018-10-05] MEDS: FAMOTIDINE 20 MG TAB PO SCH ×2 (07:56→20:59)
[2018-10-05] MEDS: Canagliflozin [Invokana] 100 MG PO SCH (07:57)
[2018-10-05] MEDS: INSULIN ASPART 100 UNIT/ML 1 ML 10 ML VIAL SQ SCH ×4 (07:57→20:53)
[2018-10-05] MEDS: ASPIRIN 325 MG TAB PO SCH ×2 (08:00→20:59)
[2018-10-05 12:10] LABS: Glucose,Whole Blood 290 mg/dL (75-99)
[2018-10-05] MEDS: CLOTRIMAZOLE 1% CREAM 15 GM TUBE TOPICAL SCH ×2 (12:30→21:00)
--- NOTE | 2018-10-05 13:08 | P.PN ---
Progress Note - Text Progress Note Date: 10/05/18 Patient is a very pleasant 83-year-old male who is seen and examined at bedside for further evaluation in regards to his right hip. He is status post right hip open reduction internal fixation with intramedullary hip screw for right hip comminuted intertrochanteric femur fracture with subtrochanteric extension. Postoperatively he continues to have significant pain in his right hip. He does not want anyone moving his right hip or right lower extremity. His pain is better controlled at rest. He was able to stand at the bedside while weightbearing on his left lower extremity with the help of physical therapy. He has been nonweightbearing on the right lower extremity. He has been using an abductor pillow and states he feels this does help control his pain. He has been seen and examined by case management. He is planned for discharge to [facility] at the time of discharge. Physical Exam Intramedullary [place] for Intertrochanteric Fracture: Status post surgical day number 2 Patient is examined lying in bed Patient is awake and alert, and oriented 3 Vital signs stable Good chest excursion with deep inspiration and expiration Abdomen soft nontender No signs or symptoms of DVT; no calf pain Lower extremity cuffs in place bilaterally Abductor pillow intact Dressing of the right hip is clean, dry, and intact; no erythema, purulence, or signs of infection Significant pain with palpation over the right hip Significant pain with any movement of the right hip Evidence of a well-healed incision over the right knee along the midline Evidence of a well-healed wound at the distal medial thigh Full range of motion of ankles bilaterally Dorsiflexion, plantarflexion, and extensor hallucis longus positive sustained bilaterally Neurovascularly intact bilateral lower extremities Capillary refill less than 2 seconds bilateral lower extremities Assessment: Status post right hip open reduction internal fixation with intramedullary hip screw for right hip comminuted intertrochanteric femur fracture with subtrochanteric extension Status post fall History of coronary artery disease, diabetes mellitus, hyperlipidemia, hypertension, and prostate disorder Plan: 1. Patient to remain nonweightbearing on the right lower extremity; patient may work with physical therapy to increase mobility and ambulation 2. Keep dressing over the right hip clean, dry, and intact 3. Continue pain control [place] or acetaminophen as prescribed as needed for the for the symptoms 5. Continue with anticoagulation therapy with aspirin 325 mg twice per day 6. Medicine to continue following the patient for their other medical diagnosis ; patient has been discussed in detail with medicine today who states they'll plan to put in some orders into his chart today in anticipation for discharge tomorrow 7. We'll continue to follow the patient closely; depending on the patient's progress, we may plan to discharge the patient to [facility] as early as tomorrow, 10/06/2018 8. Patient can follow-up with Roverto Pascual PA-C or Dr. Elver Strickland at [facility] in 2-3 weeks following discharge
[2018-10-05 13:20] LABS: Basophils % (A) 1 %; Eosinophils # (A) 0.1 k/uL (0-0.7); Eosinophils % (A) 1 %; HCT 27.8 % (39.0-53.0); HGB 9.2 gm/dL (13.0-17.5); Lymphocytes # (A) 0.4 k/uL (1.0-4.8); Lymphocytes % (A) 6 %; MCH 30.1 pg (25.0-35.0); MCHC 32.9 g/dL (31.0-37.0); MCV 91.5 fL (80.0-100.0); Mean Platelet Volume 7.2; Monocytes # (A) 0.3 k/uL (0-1.0); Monocytes % (A) 4 %; Neutrophils # (A) 5.8 k/uL (1.3-7.7); Neutrophils % (A) 88 %; Platelet Count 145 k/uL (150-450); RBC 3.04 m/uL (4.30-5.90); RDW 13.1 % (11.5-15.5); WBC 6.6 k/uL (3.8-10.6)
[2018-10-05 17:14] LABS: Glucose,Whole Blood 336 mg/dL (75-99)
--- NOTE | 2018-10-05 19:11 | P.PN ---
Subjective Progress Note Date: 10/05/18 Progress note being dictated for Dr. Chambers. Interval history:83-year-old gentleman had a mechanical fall found to have comminuted fracture the [place] diaphoresis of the right femur. Patient is complaining of severe pain in that area and spasms in that area. She denied any syncopal episode. Patient denied any chest pain at this time patient is not a smoker oxygen status is very good not dependent in ADLs or IADLs. Patient had an EKG which showed some old septal Q waves. Patient denied any shortness of breath doesn't have any history of congestive heart failure and valvular heart disease. I'll obtain echocardiogram to make sure there are no wall motion abnormalities or significant valvular abnormalities patient risk is low to intermediate operative risk for orthopedic surgery. Thing was discussed with the patient. Patient the is on opiates which will be discontinued will use Toradol for pain along with GI prophylaxis and baclofen for spasms discontinue diazepam to prevent delirium and other side effects associated with these medications and elderly people of his age. Patient does have previous history of smoking he quit in 1968 10/02/2018 Patient pain is well-controlled with the present pain regimen but the complaining of severe pain whenever he moves. Echocardiac time is still pending 10/03/2018 Patient had intramedullary hip screw for his intertrochanteric femoral fracture which was comminuted fracture patient is still coming out of anesthesia 10/04/2018 continues to have significant amount of pain. Rough night, unable to rest. Became confused with 2 [place] tablets-improved now. Blood sugars uncontrolled, family bringing in shakes, cookies, sweets. Denies chest pain, palpitations or shortness of breath. 10/05/2018 continues to have significant pain. Reports controlled at rest but severe with any movement. Right hip x-rays obtained yesterday and reviewed by orthopedics with no significant change reported. Stood at bedside with physical therapy today. Blood sugars uncontrolled, patient and family noncompliant with consistent carb diet. T-max 99.3. Denies chest pain, palpitations or increasing shortness of breath. Objective - Vital Signs Vital signs: Vital Signs Temp 99.3 F 10/05/18 14:30 Pulse 102 H 10/05/18 16:00 Resp 18 10/05/18 16:00 BP 155/68 10/05/18 14:30 Pulse Ox 97 10/05/18 14:30 Intake & Output 10/05/18 10/05/18 10/06/18 06:59 18:59 06:59 Intake Total 500 Output Total 200 100 Balance -200 400 Intake: Oral 500 Output: Urine 200 100 Other: Voiding Method Urinal Urinal - Exam GENERAL: The patient is sitting up in bed, alert and oriented x3, no acute distress. HEENT: Pupils are round and equally reacting to light. EOMI. No scleral icterus. No conjunctival pallor. Normocephalic, atraumatic. CARDIOVASCULAR: S1 and S2 present. No murmurs, rubs, or gallops. PULMONARY: Chest is clear to auscultation, no wheezing or crackles. ABDOMEN: Soft, nontender, nondistended, normoactive bowel sounds. No palpable organomegaly. MUSCULOSKELETAL: Deferred to orthopedic surgery EXTREMITIES: No cyanosis, clubbing, or pedal edema. NEUROLOGICAL: Gross neurological examination did not reveal any focal deficits. SKIN: No rashes. - Labs CBC & Chem 7: 10/05/18 12:27 10/04/18 08:52 Labs: Abnormal Lab Results - Last 24 Hours (Table) 10/04/18 10/05/18 10/05/18 Range/Units 20:17 07:14 11:57 RBC (4.30-5.90) m/uL Hgb (13.0-17.5) gm/dL Hct (39.0-53.0) % Plt Count (150-450) k/uL Lymphocytes # (1.0-4.8) k/uL POC Glucose (mg/dL) 227 H 203 H 290 H (75-99) mg/dL 10/05/18 10/05/18 Range/Units 12:27 17:03 RBC 3.04 L (4.30-5.90) m/uL Hgb 9.2 L (13.0-17.5) gm/dL Hct 27.8 L (39.0-53.0) % Plt Count 145 L (150-450) k/uL Lymphocytes # 0.4 L (1.0-4.8) k/uL POC Glucose (mg/dL) 336 H (75-99) mg/dL Assessment and Plan Assessment: -Comminuted,Intertrochanteric femur fracture of the right hip,S/P intramedullary nailing - normal ejection fraction with mild to moderate aortic valve sclerosis and stenosis -Coronary artery disease never had any stents in the past -type 2 diabetes mellitus - hyperlipidemia -Hypertension: -Benign prostatic hypertrophy Plan: Continue on current medication regime ,monitoring and symptomatic treatment. Pain management to be administered 1/2-1 hour prior to PT/walking/ movement. Aggressive pulmonary toileting with incentive spirometer reinforced.additional NovoLog ordered , close monitoring of Accu-Cheks .continue teaching/reinforcing consistent carb diet with both patient and family. PT/OT. Discharge planning in progress for tomorrow for subacute rehab. The impression and plan of care has been dictated as directed. : I performed a history and examination of this patient, discussed the same with the dictator. I agree with the dictator's note ,documented as a scribe. Any additional findings or plans will be noted.
[2018-10-05 20:22] LABS: Glucose,Whole Blood 226 mg/dL (75-99)
[2018-10-05] MEDS ORDERED: INSULIN ASPART 100 UNIT/ML 1 ML 10 ML VIAL SQ ONE (20:46)
[2018-10-05] MEDS: SENNOSIDES-DOCUSATE SODIUM 1 EACH TAB PO SCH (20:59)
[2018-10-05] MEDS: ATORVASTATIN 10 MG TAB PO SCH (20:59)
[2018-10-05] MEDS: LACTATED RINGERS 1,000 ML IV SCH (21:00)
[2018-10-06 00:17] LABS: Glucose,Whole Blood 147 mg/dL (75-99)
[2018-10-06 06:58] LABS: Glucose,Whole Blood 226 mg/dL (75-99)
[2018-10-06] MEDS: Canagliflozin [Invokana] 100 MG PO SCH (08:08)
[2018-10-06] MEDS: CLOTRIMAZOLE 1% CREAM 15 GM TUBE TOPICAL SCH (08:09)
[2018-10-06] MEDS: LACTATED RINGERS 1,000 ML IV SCH (08:10)
[2018-10-06] MEDS: INSULIN ASPART 100 UNIT/ML 1 ML 10 ML VIAL SQ SCH ×3 (08:17→17:45)
[2018-10-06] MEDS: ASPIRIN 325 MG TAB PO SCH (08:18)
[2018-10-06] MEDS: FAMOTIDINE 20 MG TAB PO SCH (08:18)
[2018-10-06] MEDS: HYDROcodone/APAP 5-325MG 1 EACH TAB PO PRN ×2 (08:18→14:07)
[2018-10-06 08:23] VITALS: RESP 16
--- NOTE | 2018-10-06 11:37 | CDI ---
Documentation Clarification Form Date: 10/06/2018 11:29:20 AM From: Akosua Anthony CCS, CCDS Admit Date: 10/01/2018 1:57:00 PM Patient Name: Jair Brown Visit Number: [id number] Discharge Date: 10/06/2018 ATTENTION: The Clinical Documentation Specialists (CDI) and [facility] Coding Staff appreciate your assistance in clarifying documentation. Please respond to the clarification below the line at the bottom and electronically sign. The CDI & [facility] Coding staff will review the response and follow-up if needed. Please note: Queries are made part of the Legal Health Record. If you have any questions, please contact the author of this message via ITS. Dr. Michelle Corona: Per the 10/05 medical consult progress note: "Blood sugars uncontrolled, pt & family noncompliant w/consistent carb diet." History/Risk Factors: DM II, CAD, Hyperlipidemia, Hypertension, BPH Clinical Indicators: Blood sugars being monitored status post hip surgery for hip fracture. LAB: 155 - 350 - 292 - 350 - 336 - 226 Treatment: Monitoring blood sugars, additional Novolog ordered. In order to capture the severity of Illness and necessary documentation specificity, please clarify: DM Type 2 With Hyperglycemia Without Hyperglycemia Uncontrolled blood sugars due to: Other, please specify: Unable to Determine (Last Revision: July 2017) MTDD
[2018-10-06 11:38] LABS: Glucose,Whole Blood 235 mg/dL (75-99)
[2018-10-06] MEDS: MULTIVITAMINS, THERA 1 EACH TAB PO SCH (13:03)
[2018-10-06 14:12] VITALS: BP 136/79; PULSE 86; TEMP 98.2
--- NOTE | 2018-10-06 14:44 | P.DS ---
Providers Date of admission: 10/01/18 13:57 Expected date of discharge: 10/06/18 Attending physician: Adeel Strickland Consults: 10/01/18 13:55 Consult Physician Urgent Consulting Provider: Michelle Corona Consult Reason/Comments: Medical management Do you want consulting provider notified?: Yes Primary care physician: Jyoti Macias [facility] - Discharge Diagnosis(es) (1) Intertrochanteric fracture of right femur Current Visit: Yes Status: Acute (2) Status post fall Current Visit: Yes Status: Acute (3) Right hip pain Current Visit: Yes Status: Acute (4) History of coronary artery disease Current Visit: Yes Status: Acute (5) History of diabetes mellitus Current Visit: Yes Status: Acute (6) History of hyperlipidemia Current Visit: Yes Status: Acute (7) History of hypertension Current Visit: Yes Status: Acute Hospital Course: This is a pleasant 83-year-old male who presented with right hip comminuted intertrochanteric femur fracture with subtrochanteric extension. Due to his fracture he underwent surgical intervention in which the procedure was a right hip open reduction internal fixation with intramedullary hip screw. Postoperatively his pain has been well controlled while at rest. He has had an exacerbation of right hip pain with movement of the right lower extremity. He does feel he has had some improvement over the past 2 days postoperatively. He has been able to work with physical therapy in standard the bedside with the aid of a walker while remaining nonweightbearing on the right lower extremity. The patient tolerated the procedure well and is been improving postoperatively. Condition on day of discharge stable. Patient will be discharged to [facility]. Patient was cleared preoperatively for surgery by Dr. Corona. Patient currently denies any nausea, vomiting, fever, or chills. Patient is eating and voiding freely without difficulty. Patient should keep dressing over the right hip clean, dry, and intact. Patient may shower without a dressing over the incision sites of incision sites remain dry over the next 72 hours. He is strict nonweightbearing on the right lower extremity. He may use a leg carding supervisor to help move his right lower extremity. Encouraged to use a walker to aid in ambulation. He is encouraged to work with physical therapy to increase mobility and ambulation. MAPS has been reviewed today, 10/06/2018, with an Overall Overdose Risk Score of 110 with a narcotic score of 20 and a sedative score of 10. An "Opiod Start Talking" Forn has been signed by the patient and myself in place in the patient' s chart. A prescription has been written for [place] 5 mg/325 mg 1 tab every 6 hours as needed for pain, dispense #28. He is also given a prescription for aspirin 325 mg 1 tab twice a day dispense # 56 for anticoagulation which he should take this medication as prescribed until completion. Physical Exam on day of discharge: Status post surgical day number 2 Patient is examined lying in bed Patient is awake and alert, and oriented 3 Vital signs stable Good chest excursion with deep inspiration and expiration Abdomen soft nontender No signs or symptoms of DVT; no calf pain Lower extremity cuffs in place bilaterally Abductor pillow intact Dressing of the right hip is clean, dry, and intact; no erythema, purulence, or signs of infection Significant pain with palpation over the right hip Significant pain with any movement of the right hip Evidence of a well-healed incision over the right knee along the midline Evidence of a well-healed wound at the distal medial thigh Full range of motion of ankles bilaterally Dorsiflexion, plantarflexion, and extensor hallucis longus positive sustained bilaterally Neurovascularly intact bilateral lower extremities Capillary refill less than 2 seconds bilateral lower extremities Procedures: Status post right hip open reduction internal fixation with intramedullary hip screw. Patient Condition at Discharge: Stable Plan - Discharge Summary Discharge Rx Participant: Yes New Discharge Prescriptions: New HYDROcodone/APAP 5-325MG [[place] 5] 1 each PO Q6HR PRN #28 tab PRN Reason: Pain Aspirin 325 mg PO BID #56 tab No Action Ubidecarenone [Co Q-10] 100 mg PO DAILY Triamterene/Hydrochlorothiazid [Dyazide 37.5-25 Capsule] 1 cap PO DAILY Lisinopril 20 mg PO DAILY Ketoconazole [Ketoconazole 2%] 1 applic TOPICAL BID Canagliflozin [Invokana] 100 mg PO DAILY metFORMIN HCL 1,000 mg PO BID glipiZIDE [Glucotrol] 10 mg PO AC-BID Lovastatin [Mevacor] 40 mg PO HS Garlic 1 tab PO DAILY Discharge Medication List Canagliflozin [Invokana] 100 mg PO DAILY 10/01/18 [History] Garlic 1 tab PO DAILY 10/01/18 [History] Ketoconazole [Ketoconazole 2%] 1 applic TOPICAL BID 10/01/18 [History] Lisinopril 20 mg PO DAILY 10/01/18 [History] Lovastatin [Mevacor] 40 mg PO HS 10/01/18 [History] Triamterene/Hydrochlorothiazid [Dyazide 37.5-25 Capsule] 1 cap PO DAILY [History] Ubidecarenone [Co Q-10] 100 mg PO DAILY 10/01/18 [History] glipiZIDE [Glucotrol] 10 mg PO AC-BID 10/01/18 [History] metFORMIN HCL 1,000 mg PO BID 10/01/18 [History] Aspirin 325 mg PO BID #56 tab 10/06/18 [Rx] HYDROcodone/APAP 5-325MG [[place] 5] 1 each PO Q6HR PRN #28 tab 10/06/18 [Rx] Follow up Appointment(s)/Referral(s): Jyoti Macias FNPBC [Primary Care Provider] - 10/11/18 11:20 am Roverto Pascual PAC [PHYSICIAN CONTRACT ADMINISTRATIVE ASSISTANT] - 10/15/18 10:00 am (Patient may follow-up with Roverto Pascual PA-C or Dr. Elver Strickland at [facility] in 2-3 weeks following discharge. ) Activity/Diet/Wound Care/Special Instructions: 1. Patient to remain nonweightbearing on the right lower extremity 2. Encouraged to work with physical therapy to increase mobility and ambulation 3. Keep dressing over the right hip clean, dry, and intact 4. May apply ice over the dressing on right hip for comfort support as needed 5. Patient may shower without a dressing over the right hip incisions if incision sites remain dry without active drainage over the next 72 hours 6. Take medications as prescribed Discharge Disposition: TRANSFER TO SNF/ECF
[2018-10-06 17:27] LABS: Glucose,Whole Blood 382 mg/dL (75-99)
--- NOTE | 2018-10-06 18:36 | P.PN ---
Subjective Progress Note Date: 10/06/18 Progress note being dictated for Dr. Chambers. Interval history:83-year-old gentleman had a mechanical fall found to have comminuted fracture the [place] diaphoresis of the right femur. Patient is complaining of severe pain in that area and spasms in that area. She denied any syncopal episode. Patient denied any chest pain at this time patient is not a smoker oxygen status is very good not dependent in ADLs or IADLs. Patient had an EKG which showed some old septal Q waves. Patient denied any shortness of breath doesn't have any history of congestive heart failure and valvular heart disease. I'll obtain echocardiogram to make sure there are no wall motion abnormalities or significant valvular abnormalities patient risk is low to intermediate operative risk for orthopedic surgery. Thing was discussed with the patient. Patient the is on opiates which will be discontinued will use Toradol for pain along with GI prophylaxis and baclofen for spasms discontinue diazepam to prevent delirium and other side effects associated with these medications and elderly people of his age. Patient does have previous history of smoking he quit in 196710/02/2018 Patient pain is well-controlled with the present pain regimen but the complaining of severe pain whenever he moves. Echocardiac time is still pending 10/03/2018 Patient had intramedullary hip screw for his intertrochanteric femoral fracture which was comminuted fracture patient is still coming out of anesthesia 10/04/2018 continues to have significant amount of pain. Rough night, unable to rest. Became confused with 2 [place] tablets-improved now. Blood sugars uncontrolled, family bringing in shakes, cookies, sweets. Denies chest pain, palpitations or shortness of breath. 10/05/2018 continues to have significant pain. Reports controlled at rest but severe with any movement. Right hip x-rays obtained yesterday and reviewed by orthopedics with no significant change reported. Stood at bedside with physical therapy today. Blood sugars uncontrolled, patient and family noncompliant with consistent carb diet. T-max 99.3. Denies chest pain, palpitations or increasing shortness of breath. 10/06/2018 pain better controlled today, up in chair. Passing flatus. Afebrile. Denies chest pain, palpitations or increasing shortness of breath. Objective - Vital Signs Vital signs: Vital Signs Temp 98.2 F 10/06/18 14:11 Pulse 86 10/06/18 14:11 Resp 16 10/06/18 14:11 BP 136/79 10/06/18 14:11 Pulse Ox 96 10/06/18 14:11 Intake & Output 10/05/18 10/06/18 10/06/18 18:59 06:59 18:59 Intake Total 500 540 Output Total 100 Balance 400 540 Intake: Oral 500 540 Output: Urine 100 Other: Voiding Method Urinal Urinal # Voids 2 2 - Exam GENERAL: The patient is sitting up in chair, alert and oriented x3, no acute distress. HEENT: Pupils are round and equally reacting to light. EOMI. No scleral icterus. No conjunctival pallor. CARDIOVASCULAR: S1 and S2 present. No murmurs, rubs, or gallops. PULMONARY: Chest is clear to auscultation, no wheezing or crackles. ABDOMEN: Soft, nontender, nondistended, normoactive bowel sounds. No palpable organomegaly. MUSCULOSKELETAL: Deferred to orthopedic surgery EXTREMITIES: No cyanosis, clubbing, or pedal edema. NEUROLOGICAL: Gross neurological examination did not reveal any focal deficits. SKIN: No rashes. - Labs CBC & Chem 7: 10/05/18 12:27 10/04/18 08:52 Labs: Abnormal Lab Results - Last 24 Hours (Table) 10/05/18 10/06/18 10/06/18 Range/Units 20:07 00:05 06:54 POC Glucose (mg/dL) 226 H 147 H 226 H (75-99) mg/dL 10/06/18 10/06/18 Range/Units 11:27 17:12 POC Glucose (mg/dL) 235 H 382 H (75-99) mg/dL Assessment and Plan Assessment: -Comminuted,Intertrochanteric femur fracture of the right hip,S/P intramedullary nailing - normal ejection fraction with mild to moderate aortic valve sclerosis and stenosis -Coronary artery disease never had any stents in the past -type 2 diabetes mellitus, uncontrolled secondary to patient and family noncompliant with consistent carb diet. - hyperlipidemia -Hypertension: -Benign prostatic hypertrophy Plan: Continue on current medication regime ,monitoring and symptomatic treatment. Pain management, DVT prophylaxis as per orthopedic surgery. Maintain aggressive pulmonary toileting with incentive spirometer reinforced.Close monitoring of Accu-Cheks .continue teaching/reinforcing consistent carb diet with both patient and family. PT/OT. Discharge planning in progress for today for subacute rehab.as per orthopedic surgery. The impression and plan of care has been dictated as directed. : I performed a history and examination of this patient, discussed the same with the dictator. I agree with the dictator's note ,documented as a scribe. Any additional findings or plans will be noted.
[2018-10-06] MEDS ORDERED: glipiZIDE 10 MG TAB PO SCH (18:45)
[2018-10-06] MEDS ORDERED: metFORMIN 500 MG TAB PO SCH (18:45)
[2018-10-06] MEDS ORDERED: INSULIN DETEMIR 100 UNIT/ML 10 ML VIAL SQ SCH (19:00)
[2018-10-07 05:25] LABS: Hemoglobin A1C 7.7 % (4.0-6.0)
== END 2018-10-06 19:15 | DRG 482 ==
LOC: EC 12:22 → 4SSUR 13:57
PROVIDERS: ADMIT Orthopaedic Surgery Orthopaedic Surgery of the Spine; ATTEND Orthopaedic Surgery Orthopaedic Surgery of the Spine
PROC: 0QS636Z Reposition Right Upper Femur with Intramedullary Internal Fixation Device, Percutaneous Approach (ICD-10-PCS; principal; 2018-10-03 09:00)
DX: S72.141A Displaced intertrochanteric fracture of right femur, initial encounter for closed fracture (principal); W01.0XXA Fall on same level from slipping, tripping and stumbling without subsequent striking against object, initial encounter; E78.5 Hyperlipidemia, unspecified; I10 Essential (primary) hypertension; I25.10 Atherosclerotic heart disease of native coronary artery without angina pectoris; E11.65 Type 2 diabetes mellitus with hyperglycemia; I35.8 Other nonrheumatic aortic valve disorders; N40.0 Benign prostatic hyperplasia without lower urinary tract symptoms; Z96.653 Presence of artificial knee joint, bilateral; Y93.01 Activity, walking, marching and hiking; Z83.3 Family history of diabetes mellitus; Z82.3 Family history of stroke; Z79.899 Other long term (current) drug therapy; Z79.84 Long term (current) use of oral hypoglycemic drugs; Z91.11 Patient's noncompliance with dietary regimen; Z87.891 Personal history of nicotine dependence
CPT/HCPCS: 73502; 80048; 80053; 83036; 85025; 85027; 85610; 85730; 88305; 88311; 93005; 93306; 96361; 96374; 99285

== ENCOUNTER 2020-06-06 15:53 | Inpatient (IN) | payer MEDICARE, OTHER ==
[2020-06-06] MEDS ORDERED: ONDANSETRON 4 MG/2 ML VIAL IVP STA (16:06)
[2020-06-06] MEDS ORDERED: HYDROmorphone 0.5 MG/0.5 ML SYRINGE IVP STA (16:06)
--- NOTE | 2020-06-06 16:08 | ED ---
Lower Extremity Injury HPI - General Chief Complaint: Extremity Injury, Lower Stated Complaint: Fall/hip pain Time Seen by Provider: 06/06/20 16:00 Source: patient, EMS, RN notes reviewed Mode of arrival: EMS Limitations: physical limitation - History of Present Illness Initial Comments: This is an 84-year-old male presents emergency from via EMS as a transfer from [facility] chief complaint of left hip pain. Patient reportedly fell off his porch patient had laboratory, imaging found to have a left subcapital fracture. Patient has had knee replacements years ago at [facility]. Patient does not have a current orthopedic physician. CT of the brain and C-spine were unremarkable. Patient received pain meds prior to presen tation but the pain meds have worn off states she's in worsening pain. Patient denies any chest pain or shortness of breath patient states he is a known diabetic denies any blood thinners he states his tetanus is up-to-date. - Related Data Home Medications Medication Instructions Recorded Confirmed Canagliflozin [Invokana] 100 mg PO DAILY 10/01/18 10/01/18 Garlic 1 tab PO DAILY 10/01/18 10/01/18 Ketoconazole [Ketoconazole 2%] 1 applic TOPICAL BID 10/01/18 10/01/18 Lovastatin [Mevacor] 40 mg PO HS 10/01/18 10/01/18 Triamterene/Hydrochlorothiazid 1 cap PO DAILY 10/01/18 10/01/18 [Dyazide 37.5-25 Capsule] Ubidecarenone [Co Q-10] 100 mg PO DAILY 10/01/18 10/01/18 glipiZIDE [Glucotrol] 10 mg PO AC-BID 10/01/18 10/01/18 lisinopriL 20 mg PO DAILY 10/01/18 10/01/18 metFORMIN HCL 1,000 mg PO BID 10/01/18 10/01/18 Previous Rx's Medication Instructions Recorded Acetaminophen Tab [Tylenol] 1,000 mg PO Q6HR PRN tab 10/06/18 Aspirin 325 mg PO BID #56 tab 10/06/18 Famotidine [Pepcid] 20 mg PO BID tab 10/06/18 HYDROcodone/APAP 5-325MG [[place] 5] 1 each PO Q6HR PRN #28 tab 12/12/18 INSULIN LISPRO (HumaLOG) [humaLOG] 0 unit SQ ACHS #1 vial 10/06/18 Multivitamins, Thera [Multivitamin 1 each PO DAILY@1200 tab 10/06/18 (formulary)] Sennosides-Docusate Sodium 2 each PO HS tab 10/06/18 [Senokot-S] Allergies Allergy/AdvReac Type Severity Reaction Status Date / Time No Known Allergies Allergy Verified 06/06/20 16:02 Review of Systems ROS Statement: Those systems with pertinent positive or pertinent negative responses have been documented in the HPI. ROS Other: All systems not noted in ROS Statement are negative. Past Medical History Past Medical History: Coronary Artery Disease (CAD), Diabetes Mellitus, Hyperlipidemia, Hypertension, Musculoskeletal Disorder, Prostate Disorder Additional Past Medical History / Comment(s): heart murmur History of Any Multi-Drug Resistant Organisms: None Reported Past Surgical History: Joint Replacement, Orthopedic Surgery Additional Past Surgical History / Comment(s): amputated finger,knee repair, cataract Past Anesthesia/Blood Transfusion Reactions: No Reported Reaction Past Psychological History: No Psychological Hx Reported Smoking Status: Former smoker Past Alcohol Use History: None Reported Past Drug Use History: None Reported - Past Family History Mother Family Medical History: Diabetes Mellitus Father Family Medical History: CVA/TIA General Exam Limitations: no limitations General appearance: alert, in no apparent distress ENT exam: Present: normal exam, mucous membranes moist Neck exam: Present: normal inspection, full ROM. Absent: tenderness, meningismus, lymphadenopathy Respiratory exam: Present: normal lung sounds bilaterally. Absent: respiratory distress, wheezes, rales, rhonchi, stridor Extremities exam: Present: other (Patient's left hip is rotated, leg is shortened neurovascular intact there is tenderness at the left hip with no significant ecchymosis.) Back exam: Absent: CVA tenderness (R), CVA tenderness (L) Neurological exam: Present: alert, oriented X3 Skin exam: Present: warm, dry, intact, normal color. Absent: rash Course Vital Signs 06/06/20 06/06/20 16:02 16:25 Temperature 99.4 F Pulse Rate 92 81 Respiratory 16 16 Rate Blood Pressure 154/107 142/79 O2 Sat by Pulse 100 100 Oximetry Medical Decision Making - Medical Decision Making Case discussed with neck on-call for advanced orthopedics. Patient be admitted to Dr. Burger with consult to medicine. Disposition Clinical Impression: Closed left hip fracture Disposition: ADMITTED IP TO THIS HOSP Condition: Fair Referrals: Jyoti Macias FNPBC [Primary Care Provider] - 1-2 days
[2020-06-06] MEDS ORDERED: NALOXONE 0.4 MG/ML 1 ML VIAL IV PRN (16:46)
[2020-06-06] MEDS ORDERED: ONDANSETRON 4 MG/2 ML VIAL IVP PRN (16:46)
--- NOTE | 2020-06-06 17:19 | P.HPOR ---
History of Present Illness H&P Date: 06/06/20 Chief Complaint: left subcapital femur fracture patient is an 84-year-old male who was transferred from [facility] after an injury involving his left leg. Patient fell at a relative's house earlier today, after the fall he was unable to weight-bear and obvious ma lalignment of the leg was noted. Initial x-rays were taken at [facility], it was determined he had a subcapital femur fracture on the left side, he was then transferred to our hospital for further management. I was contacted by the emergency room staff, the patient was then admitted under orthopedic care with plan for surgical intervention. Patient was evaluated in the ER today, he is resting comfortably. He notes most discomfort in the left leg when he attempts to move it. He has no other orthopedic complaints at this time. He has a previous history of a right intertrochanteric femur fracture back in September 2018, it was also fixed at this hospital. Patient lives in [place] normally, he visits family quite often during the summer in [place]. Patient uses no cane or walker with ambulation. Patient still drives independently. Patient denies any chest pain, shortness of breath, fever or chills, nausea or vomiting. Review of Systems Constitutional: Reports as per HPI Past Medical History Past Medical History: Coronary Artery Disease (CAD), Diabetes Mellitus, Hyperlipidemia, Hypertension, Musculoskeletal Disorder, Prostate Disorder Additional Past Medical History / Comment(s): heart murmur History of Any Multi-Drug Resistant Organisms: None Reported Past Surgical History: Joint Replacement, Orthopedic Surgery Additional Past Surgical History / Comment(s): amputated finger,knee repair, cataract Past Anesthesia/Blood Transfusion Reactions: No Reported Reaction Past Psychological History: No Psychological Hx Reported Smoking Status: Former smoker Past Alcohol Use History: None Reported Past Drug Use History: None Reported - Past Family History Mother Family Medical History: Diabetes Mellitus Father Family Medical History: CVA/TIA Medications and Allergies Home Medications Medication Instructions Recorded Confirmed Type Canagliflozin [Invokana] 100 mg PO DAILY 10/01/18 10/01/18 History Garlic 1 tab PO DAILY 10/01/18 10/01/18 History Ketoconazole [Ketoconazole 2%] 1 applic TOPICAL BID 10/01/18 10/01/18 History Lovastatin [Mevacor] 40 mg PO HS 10/01/18 10/01/18 History Triamterene/Hydrochlorothiazid 1 cap PO DAILY 10/01/18 10/01/18 History [Dyazide 37.5-25 Capsule] Ubidecarenone [Co Q-10] 100 mg PO DAILY 10/01/18 10/01/18 History glipiZIDE [Glucotrol] 10 mg PO AC-BID 10/01/18 10/01/18 History lisinopriL 20 mg PO DAILY 10/01/18 10/01/18 History metFORMIN HCL 1,000 mg PO BID 10/01/18 10/01/18 History Acetaminophen Tab [Tylenol] 1,000 mg PO Q6HR PRN tab 10/06/18 Rx Aspirin 325 mg PO BID #56 tab 10/06/18 Rx Famotidine [Pepcid] 20 mg PO BID tab 10/06/18 Rx HYDROcodone/APAP 5-325MG [[place] 5] 1 each PO Q6HR PRN #28 tab 10/06/18 Rx INSULIN LISPRO (HumaLOG) [humaLOG] 0 unit SQ ACHS #1 vial 10/06/18 Rx Multivitamins, Thera [Multivitamin 1 each PO DAILY@1200 tab 10/06/18 Rx (formulary)] Sennosides-Docusate Sodium 2 each PO HS tab 10/06/18 Rx [Senokot-S] Allergies Allergy/AdvReac Type Severity Reaction Status Date / Time No Known Allergies Allergy Verified 06/06/20 16:02 Physical Examination Left lower extremity: No obvious open lesions or sores are present throughout the extremity,and begin areas of erythema or soft tissue swelling. Obvious shortening and external r otation of the leg compared to the contralateral side. He is unable to straight leg raise. Logroll maneuver reproduces significant pain in the groin. He's tender with palpation over the anterior and lateral aspect of the proximal femur. There is no effusion present over the knee, there is no tenderness with palpation in the year. There is no tenderness with palpation along the lower leg, foot or ankle. Plantar flexion, dorsiflexion, EHL, FHL are intact. Sensory exam to light touch throughout the extremities intact. Calf is soft, no tenderness with palpation. Dorsalis pedis pulses 2+. Results - Diagnostic results Hip x-ray: report reviewed, image reviewed (outside x-rays were reviewed of the left hip, they demonstrated displaced subcapital femur fracture.) Assessment and Plan Assessment: Displaced left subcapital femur fracture Status post fall from standing other medical comorbidities Plan: I was able to discuss the case, including most physical exam findings and imaging studies and by attending Dr. Burger. Our plan is to proceed with surgical intervention, more specifically a left total hip arthroplasty versus left hip hemiarthroplasty. We would like to proceed with this on 06/07/2020. Risks and benefits of the procedure were discussed with the patient today at bedside, he is in good understanding would like to proceed. Nothing by mouth after midnight Pain control GI and DVT prophylaxis, will likely begin subcu medication after surgery Nonweightbearing at this time Medical recommendations Further recommendations to follow
[2020-06-06 21:32] LABS: Glucose,Whole Blood 217 mg/dL (75-99)
[2020-06-06] MEDS: HYDROmorphone 0.5 MG/0.5 ML SYRINGE IVP PRN (21:32)
[2020-06-06] MEDS ORDERED: ALPRAZolam 0.5 MG TAB PO PRN (21:45)
[2020-06-06] MEDS: INSULIN ASPART (NovoLOG) 100 UNIT/ML VIAL SQ SCH (21:52)
[2020-06-06] MEDS: SODIUM CHLORIDE 0.9% 1,000 ML IV SCH (21:52)
--- NOTE | 2020-06-07 01:52 | P.CONS ---
History of Present Illness - Reason for Consult Consult date: 06/06/20 Preop medical clearance Requesting physician: Hansel Burger - Chief Complaint Left hip pain - History of Present Illness 84-year-old male with past medical history of diabetes mellitus hypertension hyperlipidemia Patient lives in [place] he visits here often while visiting friends he was spending some time on the porch trying to go inside he tripped on the door frame and fell backwards he had his head but did not lose consciousness denies any nausea vomiting denies any open cuts or wounds however he couldn't get up and weight-bear and he noticed that his left lower extremity was rotated and deformed with severe pain in his left hip he was taken to [facility] CT of the head and neck showed no acute process. Imaging of his hip revealed displaced subcapital left femur fracture Patient was transferred from [facility] to our facility for further care orthopedic evaluated the patient and planning on either total or hemiarthroplasty of the left hip Patient otherwise claims to be in good status of health he is very active denies any chest pain or trouble breathing denies any recent heart attacks or congestive heart failure denies any syncope. He denies taking any blood thinners. At baseline he does not use any walker or cane he is very active around his house Review of Systems Pertinent positives as noted in HPI. All other systems were reviewed and are negative Past Medical History Past Medical History: Coronary Artery Disease (CAD), Diabetes Mellitus, Hyperlipidemia, Hypertension, Musculoskeletal Disorder, Prostate Disorder Additional Past Medical History / Comment(s): heart murmur History of Any Multi-Drug Resistant Organisms: None Reported Past Surgical History: Joint Replacement, Orthopedic Surgery Additional Past Surgical History / Comment(s): amputated finger,knee repair, cataract Past Anesthesia/Blood Transfusion Reactions: No Reported Reaction Past Psychological History: No Psychological Hx Reported Smoking Status: Former smoker Past Alcohol Use History: None Reported Additional Past Alcohol Use History / Comment(s): started smoking at age 23 and quit 1968 smoked 2ppd Past Drug Use History: None Reported - Past Family History Mother Family Medical History: Diabetes Mellitus Father Family Medical History: CVA/TIA Medications and Allergies Home Medications Medication Instructions Recorded Confirmed Type Lovastatin [Mevacor] 40 mg PO DAILY 10/01/18 06/06/20 History Triamterene/Hydrochlorothiazid 1 cap PO DAILY 10/01/18 06/06/20 History [Dyazide 37.5-25 Capsule] glipiZIDE [Glucotrol] 10 mg PO DAILY 10/01/18 06/06/20 History metFORMIN HCL 1,000 mg PO BID 10/01/18 06/06/20 History lisinopriL [Zestril] 2.5 mg PO DAILY 06/06/20 06/06/20 History Allergies Allergy/AdvReac Type Severity Reaction Status Date / Time No Known Allergies Allergy Verified 06/06/20 17:19 Physical Exam Vitals: Vital Signs Temp Pulse Pulse Resp BP BP Pulse Ox 06/06/20 20:00 98.9 F 97 16 152/69 97 06/06/20 18:45 98.8 F 95 18 160/83 96 06/06/20 18:01 98.0 F 104 H 20 141/79 96 06/06/20 16:25 81 16 142/79 100 06/06/20 16:02 99.4 F 92 16 154/107 100 Intake and Output 06/06/20 06/06/20 06/07/20 14:59 22:59 06:59 Other: Voiding Method Urinal Weight 81.647 kg Constitutional: No acute distress, conversant, pleasant Eyes: Anicteric sclerae, moist conjunctiva, patient with complete heterochromia Pupils equal round reactive to light ENMT: NC/AT Oropharynx clear, no erythema, exudates Neck: Supple, FROM, no masses, or JVD No carotid bruits No thyromegaly Lungs: Clear to auscultation Clear to percussion Normal respiratory effort, no accessory muscle use Cardiovascular: Heart regular in rate and rhythm, No murmurs, gallops, or rubs No peripheral edema Abdominal: Soft Nontender, no guarding, rebound or rigidity Abdomen moving with respiration Normoactive bowel sounds No hepatomegaly, No splenomegaly No palpable mass No abdominal wall hernia noted Skin: Normal temperature, tone, texture, turgor No induration No subcutaneous nodules No rash, lesions No ulcers Extremities: No digital cyanosis No clubbing Pedal pulses intact and symmetrical Radial pulses intact and symmetrical No calf tenderness Psychiatric: Alert and oriented to person, place and time Appropriate affect fair judgement Neuro Muscles Strength 5/5 in bilateral upper extremity and right lower extremity. Left lower extremity strength is limited by pain Sensation to light touch grossly present throughout Cranial nerves II-XII grossly intact No focal sensory deficits Lymphatics: no palpable cervical or supraclavicular , or inguinal lymph nodes Results Labs: Abnormal Lab Results - Last 24 Hours (Table) 06/06/20 Range/Units 21:31 POC Glucose (mg/dL) 217 H (75-99) mg/dL Assessment and Plan Assessment: Acute displaced left subcapital femur fracture Secondary to mechanical fall Management per orthopedics plans for surgery Pain control DVT prophylaxis per orthopedics Nothing by mouth after midnight Medical conditions Diabetes mellitus with hyperglycemia hold oral hyperglycemic agents Insulin sliding scale Hypertension currently controlled Hold DOROTHEA inhibitor and diuretics on day of surgery Hyperlipidemia resume statin patient is 84year old Male , presetned with displaced left subcapital femur fracture secondary to mechanical fall. Patient denies any recent history or symptoms of congestive heart failure, mycardial infarction, syncope, arrhythmia, palpitation, or exertional dyspnea. Patient denies any past medical history of stroke, CAD, CHF, CKD. Patient does have diabetes mellitus on oral hypoglycemic agents. Patient is functional at baseline at >4 METs she is able to climb one or two flight of stairs with no limitations, she is able to perform house chores. Patient labs from [facility] were reviewed reviewed, EKG reviewed showing normal sinus rhythm Patient is scheduled for orthopedic surgery to fix left hip fracture with either total or hemiarthroplasty. This is of moderate risk, however, patient has advanced age and 1 medical risk factor of diabetes mellitus. Patient can proceed to surgery with low-moderate but acceptable perioperative cardiovascular risk factors. No modifiable risk factors at this time. This has been explained to the patient , all questions answered, patient verbalized understanding and agreement. Thank you for allowing us to participate in the care of this patient. Do not hesitate to contact us with questions. Someone can be reached from the [facility] hospitalist group at all hours of the day at [phone].
[2020-06-07] MEDS: HYDROmorphone 0.5 MG/0.5 ML SYRINGE IVP PRN ×3 (03:06→13:00)
[2020-06-07 06:46] LABS: Glucose,Whole Blood 180 mg/dL (75-99)
[2020-06-07] MEDS: ATORVASTATIN 10 MG TAB PO SCH (07:15)
[2020-06-07] MEDS: SODIUM CHLORIDE 0.9% 1,000 ML IV SCH ×2 (07:18→23:54)
[2020-06-07] MEDS: INSULIN ASPART (NovoLOG) 100 UNIT/ML VIAL SQ SCH ×4 (07:18→20:47)
[2020-06-07 09:35] LABS: Basophils # (A) 0.1 k/uL (0-0.2); Basophils % (A) 1 %; Eosinophils # (A) 0.2 k/uL (0-0.7); Eosinophils % (A) 2 %; HCT 37.9 % (39.0-53.0); HGB 12.3 gm/dL (13.0-17.5); Lymphocytes # (A) 0.6 k/uL (1.0-4.8); Lymphocytes % (A) 7 %; MCH 29.3 pg (25.0-35.0); MCHC 32.4 g/dL (31.0-37.0); MCV 90.5 fL (80.0-100.0); Mean Platelet Volume 7.3; Monocytes # (A) 0.4 k/uL (0-1.0); Monocytes % (A) 4 %; Neutrophils # (A) 7.5 k/uL (1.3-7.7); Neutrophils % (A) 85 %; Platelet Count 183 k/uL (150-450); RBC 4.19 m/uL (4.30-5.90); RDW 13.8 % (11.5-15.5); WBC 8.8 k/uL (3.8-10.6)
[2020-06-07 09:40] LABS: African American GFR (CKD) >90 (>60 ml/min/1.73 sqM); Anion Gap 8 mmol/L; Blood Urea Nitrogen 16 mg/dL (9-20); Calcium 8.6 mg/dL (8.4-10.2); Carbon Dioxide 26 mmol/L (22-30); Chloride 102 mmol/L (98-107); Glucose 175 mg/dL (74-99); Non-African American GFR(CKD) 88 (>60 ml/min/1.73 sqM); Potassium 3.8 mmol/L (3.5-5.1); Sodium 136 mmol/L (137-145)
[2020-06-07 11:42] LABS: Glucose,Whole Blood 157 mg/dL (75-99)
--- NOTE | 2020-06-07 11:53 | ECHOF ---
Referral Reason:preop clearance MEASUREMENTS -------- HEIGHT: 180.3 cm WEIGHT: 81.6 kg BP: 143/82 IVSd: 1.2 cm (0.6 - 1.1) LVIDd: 4.4 cm (3.9 - 5.3) LVPWd: 1.4 cm (0.6 - 1.1) IVSs: 1.8 cm LVIDs: 2.4 cm LVPWs: 1.8 cm LA Diam: 5.8 cm (2.7 - 3.8) Ao Diam: 3.5 cm (2.0 - 3.7) AV Cusp: 1.1 cm (1.5 - 2.6) MV E Taj: 1.19 m/s MV DecT: 141 ms MV A Taj: 1.70 m/s MV E/A Ratio: 0.70 AV maxP.50 mmHg AV meanP.57 mmHg RAP: 5.00 mmHg RVSP: 20.12 mmHg FINDINGS -------- This was a technically difficult study with suboptimal views. The left ventricular size is normal. There is mild concentric left ventricular hypertrophy. Overa ll left ventricular systolic function is low-normal with, an EF between 50 - 55 %. The RV was not well visualized. The left atrium is moderately dilated. The right atrium was not well visualized. 5.0mg of Lumason was utilized for enhancement of images Interatrial and interventricular septum intact. The aortic valve was not well visualized. There is mild aortic stenosis present. The maximum pres sure gradient across the aortic valve is 23.50mmHg. The mitral valve was not well visualized. Mild mitral regurgitation is present. Mild tricuspid regurgitation present. There is no evidence of pulmonary hypertension. The right v entricular systolic pressure, as measured by Doppler, is 20.12mmHg. The pulmonic valve was not well visualized. The aortic root size is normal. IVC Not well visulized. There is no pericardial effusion. CONCLUSIONS -------- 1. The left ventricular size is normal. 2. There is mild concentric left ventricular hypertrophy. 3. Overall left ventricular systolic function is low-normal with, an EF between 50 - 55 %. 4. The left atrium is moderately dilated. 5. There is mild aortic stenosis present. 6. The maximum pressure gradient across the aortic valve is 23.50mmHg. 7. Mild mitral regurgitation is present. 8. Mild tricuspid regurgitation present. DOLL MAKER: Peg Bragg RDCS
[2020-06-07 13:38] LABS: Prothrombin Time 10.5 sec (9.0-12.0)
[2020-06-07] MEDS ORDERED: IV FLUID CONTINUATION 1,000 ML IV ONE (16:20)
[2020-06-07] MEDS ORDERED: LACTATED RINGERS 1,000 ML IV ONE ×2 (16:54→20:00)
[2020-06-07] MEDS ORDERED: fentaNYL (PF) 50 MCG/ML 2 ML AMP ONE (16:56)
[2020-06-07] MEDS ORDERED: KETAMINE 10 MG/ML 20 ML VIAL ONE (16:56)
[2020-06-07] MEDS ORDERED: MIDAZOLAM 2 MG/2 ML VIAL ONE (16:56)
[2020-06-07] MEDS ORDERED: MAGNESIUM HYDROXIDE 2,400 MG/10 ML CUP PO PRN (19:02)
[2020-06-07] MEDS ORDERED: HYDROcodone/APAP 5-325MG 1 EACH TAB PO PRN (19:02)
[2020-06-07] MEDS ORDERED: traMADol 50 MG TAB PO PRN (19:02)
[2020-06-07] MEDS ORDERED: ACETAMINOPHEN TAB 325 MG TAB PO PRN (19:02)
[2020-06-07] MEDS ORDERED: MEPERIDINE 50 MG/ML SYRINGE IVP ONE (19:26)
--- NOTE | 2020-06-07 19:28 | P.OP ---
Date of Procedure: 06/07/20 Preoperative Diagnosis: Displaced left subcapital femoral neck fracture Postoperative Diagnosis: Same Procedure(s) Performed: Left hip hemiarthroplastypress-fit Implants: Depuy Corail size 16 press-fit collared standard femoral stem, +5 neck, 49 mm unipolar head. Anesthesia: spinal Surgeon: Hansel Burger Tool Mechanic #1: Niko Jaramillo Estimated Blood Loss (ml): 200 Pathology: other (Femoral head) Condition: stable Disposition: PACU Indications for Procedure: The patient's an 84-year-old male who is a community annular presents after falling injuring his left hip. Upon evaluation he is noted of evidence of a displaced subcapital femoral neck fracture. A discussion of the risks and benefits of operative intervention was made with patient. He opted to proceed. Operative risks to include infection, neurovascular injury, leg length discrepancy, possible fracture, possible instability and need for subsequent procedures was discussed. Informed consent was obtained. Operative Findings: As below Description of Procedure: The patient was brought to the operating room, and after induction of spinal anesthesia was placed in lateral decubitus position. The bony prominences were properly padded. The pelvis was stabilized perpendicular to the floor with a pegboard. Left lower extremity was prepped and draped in normal fashion. A 15 cm incision was then made centered over the greater trochanter extending proximally to level the ASIS and distally in line with the femoral shaft. The skin and subcu tissues were divided sharply. Electrocautery was used for h emostasis. The fascia bella and gluteus porsha fascia was split in line with the skin incision. The muscle fibers were bluntly dissected proximally. A self-retaining retractor was placed. The anterior and posterior margins of the gluteus medius muscles identified in the anterior two thirds detached from the greater trochanter with electrocautery. The gluteus minimus tendon was identified and detached in similar fashion. The capsular layer was identified. A T-shaped capsulotomy was performed. The capsular flaps were tagged with #2 Ethibond suture. A lower neck cut was made to facilitate head extraction with a sagittal saw. The head was then extracted. The acetabular was inspected. No significant cartilage injury was noted. Attention was then paid towards preparing the proximal femur. A final neck cut was made at a 45 angle shaft proximal 1 cm above the level of lesser trochanter with a sagittal saw. A box chisel was used to open the metaphyseal region. A canal finder used to find the femoral canal. Sequential broaching was performed up to 16. There is good rotational stability. This is placed in 15 of anteversion judging off the trans-epicondylar axis with the leg perpendicular to the floor. A standard neck along with a +5/49 mm unipolar head was placed. The hip was gently reduced. It was taken through range of motion felt to be stable in flexion and extension with internal and external rotation. I felt there was adequate synagogue of soft tissue tension. Hip was gently dislocated. The trial components were then removed. The final size 16 collared femoral stem was inserted again in 15 of anteversion with the leg perpendicular to the floor and was fully seated. Again there is good rotational stability. The +5 spacer and 49 mm unipolar head was gently impacted. The hip was gently reduced. It is skin taken through range of motion felt to be stable in flexion and extension with internal and external rotation. Pulsatile lavage was then utilized. The capsular layer was closed with interrupted #2 Ethibond suture. The gluteus minimus and medius tendons reattached the greater trochanter with #2 Ethibond suture. There was minimal drainage this point therefore a deep drain was not placed. The subcutaneous tissues reapproximated interrupted 2-0 Vicryl sutures. The skin was reprepped with 3-0 subcuticular strata fix suture. Skin tape and adhesive was applied. The patient was awoken from sedation and transferred to recovery room in fair condition. Blood loss was estimated at 200 cc. No complications were incurred. Sponge and needle counts were correct in the case. Moncho ALTMAN assistance during the major components the case to include positioning, exposure, implantation, and closure.
[2020-06-07] MEDS: fentaNYL (PF) 50 MCG/ML 2 ML AMP IV ONE ×2 (19:37→19:43)
--- NOTE | 2020-06-07 19:58 | XR ---
EXAMINATION TYPE: XR Hip Limited LT DATE OF EXAM: 06/07/2020 COMPARISON: Yesterday HISTORY: Postop TECHNIQUE: Single view FINDINGS: There is a left hip prosthesis. Components are in anatomic position. Acetabulum appears int act. IMPRESSION: No complicating process seen.
[2020-06-07 20:34] LABS: Glucose,Whole Blood 203 mg/dL (75-99)
[2020-06-07] MEDS: SENNOSIDES-DOCUSATE SODIUM 1 EACH TAB PO SCH (20:46)
[2020-06-07] MEDS: HYDROcodone/APAP 5-325MG 1 EACH TAB PO PRN (20:47)
[2020-06-08] MEDS: HYDROcodone/APAP 5-325MG 1 EACH TAB PO PRN ×2 (05:42→20:29)
[2020-06-08] MEDS: INSULIN ASPART (NovoLOG) 100 UNIT/ML VIAL SQ SCH ×4 (07:06→21:17)
[2020-06-08 07:18] LABS: Glucose,Whole Blood 195 mg/dL (75-99)
[2020-06-08] MEDS: ENOXAPARIN 40 MG/0.4 ML SYRINGE SQ SCH (09:08)
[2020-06-08] MEDS: ATORVASTATIN 10 MG TAB PO SCH (09:08)
[2020-06-08 10:41] LABS: Basophils # (A) 0.1 k/uL (0-0.2); Basophils % (A) 1 %; Eosinophils % (A) 1 %; HCT 34.7 % (39.0-53.0); HGB 11.1 gm/dL (13.0-17.5); Lymphocytes # (A) 0.6 k/uL (1.0-4.8); Lymphocytes % (A) 6 %; MCH 29.4 pg (25.0-35.0); MCV 91.9 fL (80.0-100.0); Mean Platelet Volume 7.2; Monocytes # (A) 0.3 k/uL (0-1.0); Monocytes % (A) 3 %; Neutrophils # (A) 8.3 k/uL (1.3-7.7); Neutrophils % (A) 89 %; Platelet Count 174 k/uL (150-450); RBC 3.77 m/uL (4.30-5.90); RDW 13.8 % (11.5-15.5); WBC 9.3 k/uL (3.8-10.6)
--- NOTE | 2020-06-08 10:48 | P.PN ---
Subjective Progress Note Date: 06/08/20 Principal diagnosis: Status post left hip hemiarthroplasty patient evaluated at bedside today, he is resting comfortably. He did very well with therapy. His pain is well-controlled. He denies any chest pain or shortness of breath. Objective - Vital Signs Vital signs: Vital Signs Temp 98.2 F 06/08/20 07:00 Pulse 101 H 06/08/20 07:00 Resp 20 06/08/20 07:00 BP 123/71 06/08/20 07:00 Pulse Ox 91 L 06/08/20 07:00 Intake & Output 06/07/20 06/08/20 06/08/20 18:59 06:59 18:59 Intake Total 1550 200 Output Total 200 400 Balance 1350 -200 Intake: IV 1550 100 Sodium Chloride 0.9% 1, 600 000 ml @ 75 mls/hr IV . [id number] ALIX Rx#:[id number] Oral 100 Output: Urine 200 200 Estimated Blood Loss 200 Other: Voiding Method Urinal Urinal # Voids 1 - Exam Left lower extremity: Incision is clean, dry, and intact. The exofin fusion tape is in good condition. There is minimal soft tissue swelling and ecchymosis surrounding the medial and lateral aspects of the incision. Calf is soft, no tenderness with palpation. Plantar flexion, dorsiflexion, EHL, FHL are intact. Sensory exam to light touch throughout the extremity is intact, [dorsal pedis pulses 2+.] - Labs CBC & Chem 7: 06/08/20 10:17 06/07/20 09:00 Labs: Abnormal Lab Results - Last 24 Hours (Table) 06/07/20 06/07/20 06/08/20 Range/Units 11:40 20:18 07:12 RBC (4.30-5.90) m/uL Hgb (13.0-17.5) gm/dL Hct (39.0-53.0) % Neutrophils # (1.3-7.7) k/uL Lymphocytes # (1.0-4.8) k/uL POC Glucose (mg/dL) 157 H 203 H 195 H (75-99) mg/dL 06/08/20 Range/Units 10:17 RBC 3.77 L (4.30-5.90) m/uL Hgb 11.1 L (13.0-17.5) gm/dL Hct 34.7 L (39.0-53.0) % Neutrophils # 8.3 H (1.3-7.7) k/uL Lymphocytes # 0.6 L (1.0-4.8) k/uL POC Glucose (mg/dL) (75-99) mg/dL Assessment and Plan Assessment: Status post left hip hemiarthroplasty Plan: Pain control, low-dose oral medication GI and DVT prophylaxis, continue current medication Wound care instructions were discussed, daily dressing changes Weight-bear as tolerated with walker Medical recommendations Hopefully discharge to rehab tomorrow Time with Patient: Less than 30
[2020-06-08 11:46] LABS: Glucose,Whole Blood 235 mg/dL (75-99)
[2020-06-08] MEDS: SODIUM CHLORIDE 0.9% 1,000 ML IV SCH (12:35)
[2020-06-08 18:02] LABS: Glucose,Whole Blood 216 mg/dL (75-99)
--- NOTE | 2020-06-08 19:00 | P.PN ---
Subjective Progress Note Date: 06/08/20 Patient seen and examined. No acute events were negative. Patient reports well-controlled pain in his right hip. He denies any chest pain, shortness breath or palpitations. No nausea or vomiting. No fever chills. Objective - Vital Signs Vital signs: Vital Signs Temp 98.3 F 06/08/20 15:00 Pulse 108 H 06/08/20 15:00 Resp 20 06/08/20 15:00 BP 144/63 06/08/20 15:00 Pulse Ox 96 06/08/20 15:00 Intake & Output 06/07/20 06/08/20 06/08/20 18:59 06:59 18:59 Intake Total 1550 200 Output Total 200 400 200 Balance 1350 -200 -200 Intake: IV 1550 100 Sodium Chloride 0.9% 1, 600 000 ml @ 75 mls/hr IV . [id number] ALIX Rx#:[id number] Oral 100 Output: Urine 200 200 200 Estimated Blood Loss 200 Other: Voiding Method Urinal Urinal # Voids 1 - Exam General: [non toxic], [no distress], [appears at stated age] Derm: [warm], [dry] Head: [atraumatic], [normocephalic], [symmetric] Eyes: [EOMI], [no lid lag], [anicteric sclera] Mouth: [no lip lesion], [mucus membranes moist] Cardiovascular: [S1S2 reg], [tachycardic], [positive posterior tibial pulse bilateral], Lungs: [CTA bilateral], [no rhonchi, no rales] , [no accessory muscle use] Abdominal: [soft], [ nontender to palpation], [no guarding], [no appreciable organomegaly] Ext: [no gross muscle atrophy], [no edema], [no contractures], right hip dressing clean dry and intact with limited range of motion due to pain Neuro: [no focal neuro deficits] Psych: [Alert], [oriented], [appropriate affect] - Labs CBC & Chem 7: 06/08/20 10:17 06/07/20 09:00 Labs: Abnormal Lab Results - Last 24 Hours (Table) 06/07/20 06/08/20 06/08/20 Range/Units 20:18 07:12 10:17 RBC 3.77 L (4.30-5.90) m/uL Hgb 11.1 L (13.0-17.5) gm/dL Hct 34.7 L (39.0-53.0) % Neutrophils # 8.3 H (1.3-7.7) k/uL Lymphocytes # 0.6 L (1.0-4.8) k/uL POC Glucose (mg/dL) 203 H 195 H (75-99) mg/dL 06/08/20 06/08/20 Range/Units 11:44 18:00 RBC (4.30-5.90) m/uL Hgb (13.0-17.5) gm/dL Hct (39.0-53.0) % Neutrophils # (1.3-7.7) k/uL Lymphocytes # (1.0-4.8) k/uL POC Glucose (mg/dL) 235 H 216 H (75-99) mg/dL Assessment and Plan Assessment: Tachycardia Acute blood loss anemia Diabetes mellitus Hypertension Dyslipidemia His tachycardia is regular and likely related to pain. Anticipate tachycardia to resolve with better pain control. Expected result of surgery. Repeat CBC tomorrow morning. Insulin sliding scale. Regular Accu-Cheks. Hypoglycemic precautions. BP 144/63. Restart antihypertensive medication. Continue lovastatin. Patient will need subacute rehab on discharge. Thank you for this consult. Please call with any additional questions or concerns.
[2020-06-08] MEDS: TRIAMTERENE-HCTZ 37.5-25MG 1 EACH CAP PO SCH (20:29)
[2020-06-08 20:57] LABS: Glucose,Whole Blood 238 mg/dL (75-99)
[2020-06-08] MEDS: SENNOSIDES-DOCUSATE SODIUM 1 EACH TAB PO SCH (21:17)
[2020-06-09] MEDS: SODIUM CHLORIDE 0.9% 1,000 ML IV SCH (00:36)
[2020-06-09] MEDS: HYDROcodone/APAP 5-325MG 1 EACH TAB PO PRN (02:02)
[2020-06-09 06:51] LABS: Glucose,Whole Blood 202 mg/dL (75-99)
[2020-06-09] MEDS: INSULIN ASPART (NovoLOG) 100 UNIT/ML VIAL SQ SCH ×2 (07:33→11:44)
[2020-06-09] MEDS: ATORVASTATIN 10 MG TAB PO SCH (07:33)
[2020-06-09] MEDS: ENOXAPARIN 40 MG/0.4 ML SYRINGE SQ SCH (07:33)
[2020-06-09] MEDS: TRIAMTERENE-HCTZ 37.5-25MG 1 EACH CAP PO SCH (07:33)
[2020-06-09 07:40] VITALS: BP 119/70; PULSE 88; RESP 18; TEMP 97.7
[2020-06-09 09:48] LABS: African American GFR (CKD) >90 (>60 ml/min/1.73 sqM); Anion Gap 10 mmol/L; Blood Urea Nitrogen 18 mg/dL (9-20); Calcium 8.8 mg/dL (8.4-10.2); Carbon Dioxide 26 mmol/L (22-30); Chloride 98 mmol/L (98-107); Glucose 220 mg/dL (74-99); Non-African American GFR(CKD) 89 (>60 ml/min/1.73 sqM); Potassium 3.6 mmol/L (3.5-5.1); Sodium 134 mmol/L (137-145)
--- NOTE | 2020-06-09 11:04 | P.PN ---
Subjective Progress Note Date: 06/09/20 Principal diagnosis: Status post left hip hemiarthroplasty patient evaluated at bedside today, he is resting comfortably. He did very well with therapy. His pain is well-controlled. He denies any chest pain or shortness of breath. Objective - Vital Signs Vital signs: Vital Signs Temp 97.7 F 06/09/20 07:38 Pulse 88 06/09/20 07:38 Resp 18 06/09/20 07:38 BP 119/70 06/09/20 07:38 Pulse Ox 94 L 06/09/20 07:38 Intake & Output 06/08/20 06/09/20 06/09/20 18:59 06:59 18:59 Output Total 200 1 Balance -200 -1 Output: Urine 200 1 Other: Voiding Method Urinal Urinal # Voids 1 - Exam Left lower extremity: Incision is clean, dry, and intact. The exofin fusion tape is in good condition. There is minimal soft tissue swelling and ecchymosis surrounding the medial and lateral aspects of the incision. Calf is soft, no tenderness with palpation. Plantar flexion, dorsiflexion, EHL, FHL are intact. Sensory exam to light touch throughout the extremity is intact, [dorsal pedis pulses 2+.] - Labs CBC & Chem 7: 06/08/20 10:17 06/09/20 07:56 Labs: Abnormal Lab Results - Last 24 Hours (Table) 06/08/20 06/08/20 06/08/20 Range/Units 11:44 18:00 20:55 Sodium (137-145) mmol/L Glucose (74-99) mg/dL POC Glucose (mg/dL) 235 H 216 H 238 H (75-99) mg/dL 06/09/20 06/09/20 Range/Units 06:50 07:56 Sodium 134 L (137-145) mmol/L Glucose 220 H (74-99) mg/dL POC Glucose (mg/dL) 202 H (75-99) mg/dL Assessment and Plan Assessment: Status post left hip hemiarthroplasty Plan: Pain control, low-dose oral medication GI and DVT prophylaxis, continue current medication Wound care instructions were discussed, daily dressing changes Weight-bear as tolerated with walker Medical recommendations Discharged to rehab today Time with Patient: Less than 30
--- NOTE | 2020-06-09 11:09 | P.DS ---
Providers Date of admission: 06/06/20 16:46 Expected date of discharge: 06/09/20 Attending physician: Hansel Burger Consults: 06/06/20 16:46 Consult Physician Urgent Consulting Provider: Elton Ashton Consult Reason/Comments: Surgical clearance, medical management Do you want consulting provider notified?: Yes Primary care physician: Jyoti Macias [facility] Hospital Course: Date of admission: 06/06/2020 Date of discharge: 06/09/2020 Admission diagnosis: Displaced left subcapital femur fracture Discharge diagnosis: Status post left hip hemiarthroplasty Attending physician: Dr. Burger Surgical procedures: Left hip hemiarthroplasty Brief history: Patient is a 85-year-old male who presented to [facility] on 06/06/2020 after falling and injuring his left hip. Patient was evaluated in the emergency room by myself, it was determined he had a subcapital femur fracture. Patient was scheduled for surgery for 06/07/2020. Hospital course: Details of patient's surgery can be found in operative report. Patient tolerated the procedure well and was subsequently transported to orthopedic floor. Patient's orthopeidc and medical care was provided daily. Patient had daily laboratory tests performed for evaluation of overall blood counts. Patient had daily physical therapy to include strengthening range of motion as well as education with walker ambulation. Patient was treated with Lovenox for their postoperative DVT prophylaxis during their inpatient stay. Patient was noted to have a relatively uneventful postoperative course. Patient reported satisfactory pain control with oral pain medications by postoperative day 0. Patient showed satisfactory progress with physical therapy. Patient moved steadily through the program and had no difficulty meeting the goals by postoperative day 2. Given patient's otherwise satisfactory course and having met physical therapy goals, plan is to discharge patient rehab on postoperative day 2. Discharge condition/disposition: Patient will be discharged rehab in stable condition. Discharge medications: Instructions are given on resumption of patient's normal daily medications per primary care recommendation, in addition patient will be prescribed [place] 5 mg/325 mg, Colace 100 mg, heparin 5000 units. Discharge instructions: 1. Wound care and infection precautions, keep incision dry and covered while showering, no lotions, creams, moisturizers. No soaking, tubs, pools, hottubs. Do not scrub over the incision. 2. Weight-bear as tolerated with walker / cane until follow-up. 3. Ice and elevate when necessary. Do not exceed 20 minutes per hour with ice pack. 4. Utilize compression sleeve until seen at first follow up appointment. 5. Visiting nursing care. 6. Home physical therapy. 7. Pain meds and anticoagulants per prescription. 8. Pain medication has potential to cause constipation. Increase oral fluid and fiber intake. Contact primary care provider if you have not had a bowel movement within 48 hours after discharge 9. No anti-inflammatory medication until discussed at first post operative visit, this including Motrin, Aleve, Mobic, Diclofenac 10. Follow up in office at 2 weeks postop with Moncho Jaramillo PA-C 11. Follow up with your primary care doctor 7-10 days after discharge. 12. Contact [facility] with any questions, . Procedures: Left hip hemiarthroplasty Patient Condition at Discharge: Fair Plan - Discharge Summary New Discharge Prescriptions: New Docusate [Colace] 100 mg PO DAILY #30 capsule Heparin Sodium,Porcine [Heparin Sodium] 5,000 unit SQ Q12HR #60 vial Hydrocodone/Acetaminophen [[place] 5-325] 1 - 2 each PO Q6HR PRN #56 tab PRN Reason: Pain ALPRAZolam [Xanax] 0.5 mg PO TID PRN #30 tablet PRN Reason: Anxiety No Action Triamterene/Hydrochlorothiazid [Dyazide 37.5-25 Capsule] 1 cap PO DAILY metFORMIN HCL 1,000 mg PO BID glipiZIDE [Glucotrol] 10 mg PO DAILY Lovastatin [Mevacor] 40 mg PO DAILY lisinopriL [Zestril] 2.5 mg PO DAILY Discharge Medication List Lovastatin [Mevacor] 40 mg PO DAILY 10/01/18 [History] Triamterene/Hydrochlorothiazid [Dyazide 37.5-25 Capsule] 1 cap PO DAILY 10/01/18 [History] glipiZIDE [Glucotrol] 10 mg PO DAILY 10/01/18 [History] metFORMIN HCL 1,000 mg PO BID 10/01/18 [History] lisinopriL [Zestril] 2.5 mg PO DAILY 06/06/20 [History] ALPRAZolam [Xanax] 0.5 mg PO TID PRN #30 tablet 08/15/20 [Rx] Docusate [Colace] 100 mg PO DAILY #30 capsule 06/09/20 [Rx] Heparin Sodium,Porcine [Heparin Sodium] 5,000 unit SQ Q12HR #60 vial 06/09/20 [Rx] Hydrocodone/Acetaminophen [[place] 5-325] 1 - 2 each PO Q6HR PRN #56 tab 06/09/20 [Rx] Follow up Appointment(s)/Referral(s): Jyoti Macias FNPBC [Primary Care Provider] - 1-2 days Niko Jaramillo PAC [PHYSICIAN SHEEP F[employer] MANAGER] - 2 Weeks Activity/Diet/Wound Care/Special Instructions: Orthopedic Discharge Instructions: 1. Wound care and infection precautions, keep incision dry and covered while showering, no lotions, creams, moisturizers. No soaking, pools, hot tubs. Do not scrub over incision. 2. Weight-bear as tolerated with walker / cane until follow-up. 3. Ice and elevate when necessary. Do not exceed 20 minutes per hour with ice pack. 4. Utilize compression sleeve until seen at first follow up appointment. 5. Pain meds and anticoagulants per prescription. 6. Pain medication has potential to cause constipation. Increase oral fluid and fiber intake. Contact primary care provider if you have not had a bowel movement within 48 hours after discharge. 7. No anti-inflammatory medication until discussed at first post operative visit, this including Motrin, Aleve, Mobic, Diclofenac. 8. Follow up in office at 2 weeks postop with Moncho Jaramillo PA-C 9. Follow up with your primary care doctor 7-10 days after discharge. 10. Contact [facility] with any questions, . Discharge Disposition: HOME WITH HOME HEALTH SERVICES
[2020-06-09 11:29] LABS: Glucose,Whole Blood 260 mg/dL (75-99)
--- NOTE | 2020-06-09 15:27 | P.PN ---
Subjective Progress Note Date: 06/09/20 No new complaints at this time, patient workable PT/OT, plans for discharge today. Objective - Vital Signs Vital signs: Vital Signs Temp 97.7 F 06/09/20 07:38 Pulse 88 06/09/20 07:38 Resp 18 06/09/20 07:38 BP 119/70 06/09/20 07:38 Pulse Ox 94 L 06/09/20 07:38 Intake & Output 06/08/20 06/09/20 06/09/20 18:59 06:59 18:59 Output Total 200 1 Balance -200 -1 Output: Urine 200 1 Other: Voiding Method Urinal Urinal # Voids 1 - Exam Gen: awake, alert HEENT: normocephalic, atraumatic, good hearing acuity, moist mucous membranes Resp: CTAB, good air exchange, no accessory muscle use, no wheezes, crackles, rhonchi CVS: good distal perfusion x 4, RRR, no murmurs, clicks, gallops GI: soft, NTTP, ND : no SPT, no CVAT, sellers catheter [IS/NOT] present MSK: no pitting edema, no clubbing Neuro: non-focal, no sensory deficits, appropriate tone Psych: cooperative, euthymic mood - Labs CBC & Chem 7: 06/08/20 10:17 06/09/20 07:56 Labs: Abnormal Lab Results - Last 24 Hours (Table) 06/08/20 06/08/20 06/09/20 Range/Units 18:00 20:55 06:50 Sodium (137-145) mmol/L Glucose (74-99) mg/dL POC Glucose (mg/dL) 216 H 238 H 202 H (75-99) mg/dL 06/09/20 06/09/20 Range/Units 07:56 11:28 Sodium 134 L (137-145) mmol/L Glucose 220 H (74-99) mg/dL POC Glucose (mg/dL) 260 H (75-99) mg/dL Assessment and Plan Assessment: Tachycardia Acute blood loss anemia Diabetes mellitus Hypertension Dyslipidemia His tachycardia is regular and likely related to pain. Anticipate tachycardia to resolve with better pain control. Expected result of surgery. Repeat CBC tomorrow morning. Insulin sliding scale. Regular Accu-Cheks. Hypoglycemic precautions. BP 144/63. Restart antihypertensive medication. Continue lovastatin. Patient will need subacute rehab on discharge. Thank you for this consult. Please call with any additional questions or concerns. Okay for discharge from medicine perspective.
[2020-07-08 15:16] LABS: Glucose,Whole Blood 199 mg/dL (75-99)
== END 2020-06-09 13:16 | DRG 470 ==
LOC: EC 15:53 → 4SSUR 16:46
PROVIDERS: ADMIT Orthopaedic Surgery; ATTEND Orthopaedic Surgery
PROC: 0SRS0JA Replacement of Left Hip Joint, Femoral Surface with Synthetic Substitute, Uncemented, Open Approach (ICD-10-PCS; principal; 2020-06-07 09:25)
DX: S72.012A Unspecified intracapsular fracture of left femur, initial encounter for closed fracture (principal); D62 Acute posthemorrhagic anemia; Z20.828 Contact with and (suspected) exposure to other viral communicable diseases; E11.65 Type 2 diabetes mellitus with hyperglycemia; I25.10 Atherosclerotic heart disease of native coronary artery without angina pectoris; I10 Essential (primary) hypertension; E78.5 Hyperlipidemia, unspecified; R00.0 Tachycardia, unspecified; N42.9 Disorder of prostate, unspecified; R01.1 Cardiac murmur, unspecified; W01.0XXA Fall on same level from slipping, tripping and stumbling without subsequent striking against object, initial encounter; Z79.84 Long term (current) use of oral hypoglycemic drugs; Z79.899 Other long term (current) drug therapy; Z98.49 Cataract extraction status, unspecified eye; Z89.029 Acquired absence of unspecified finger(s); Z87.891 Personal history of nicotine dependence; Z98.890 Other specified postprocedural states; Z87.81 Personal history of (healed) traumatic fracture; Z96.641 Presence of right artificial hip joint; Z87.39 Personal history of other diseases of the musculoskeletal system and connective tissue; Z83.3 Family history of diabetes mellitus; Z82.3 Family history of stroke
CPT/HCPCS: 73501; 80048; 85025; 85610; 86850; 86900; 86901; 87635; 88305; 88311; 93306; 96374; 96375; 99284